=== PATIENT | female | born 1945 | race Caucasian/White ===

== ENCOUNTER 2025-04-04 10:12 | Outpatient (REF) | payer OTHER, SELFPAY ==
--- NOTE | ~2025-04-04 | XR_ITS ---
EXAMINATION: XR LUMBOSACRAL SPINE CLINICAL INFORMATION: M48.062 - Spinal stenosis, lumbar region with neurogenic claudication COMPARISON: None available. TECHNIQUE: 4 views of the lumbar spine, inclusive of flexion and extension views, were obtained. FINDINGS: Minimal levoconvex scoliosis centered at L4. Normal lumbar lordosis. No fracture, compression deformity, or suspicious bone lesion. Severe disc degeneration evident at L2-S1 with disc vacuum phenomenon and mild sclerosis of the endplates. Multilevel hypertrophic degenerative facet changes spanning L2-S1. There is a 3 mm degenerative retrolisthesis of L2 on L3, which remained static in flexion and extension. There is no evidence of instability. Soft tissues demonstrate aortic and vascular calcifications. XR/XR lumbar spine 4V min IMPRESSION: 1. Moderate to advanced lumbar spondylosis spanning L2-S1. No acute bony abnormalities. 2. No evidence of instability. Electronically signed by: Deandre Schneider MD 04/04/2025 03:08 PM EDT
== END 2025-04-04 10:13 | disposition home or self-care (01) ==
LOC: HO.HOSX 10:12
PROVIDERS: PCP Internal Medicine; Referring Provider Physical Medicine & Rehabilitation; Visit Provider Neurological Surgery
DX: M48.062 Spinal stenosis, lumbar region with neurogenic claudication (principal); M79.652 Pain in left thigh
CPT/HCPCS: 72110

== ENCOUNTER 2025-04-04 13:55 | Outpatient (AMB) | payer OTHER, SELFPAY ==
--- OUTSIDE RECORDS SUMMARY | 2025-04-04 10:16 | XMS_ITS | Clinical Summary ---
Author Organization [address] Address [address] [place] [address] Phone Care Team Providers Care Patch Sander Name Role Phone Dragan Daniels MD Primary Care Provider Allergies No known active allergies Medications multivitamin (MULTIPLE VITAMINS ORAL) Take 1 Tab by mouth daily. Active azelaic acid (FINACEA) 15 % gel 3 Active calcium carbonate-vitamin D 500 mg-5 mcg (200 unit) per tablet 1 bid Active estradioL (CLIMARA) 0.025 mg/24 hr APPLY 1 PATCH TOPICALLY TO THE SKIN WEEKLY 2 Active levothyroxine (Synthroid) 100 mcg tablet Take 1 tablet (100 mcg total) by mouth 1 (one) time each day. 0 Active metroNIDAZOLE (MetroCream) 0.75 % cream apply as directed daily 8 Active losartan (COZAAR) 50 mg tablet Take 1 tablet (50 mg total) by mouth 1 (one) time each day. 90 each 1 5 Active metoprolol succinate (TOPROL-XL) 50 mg 24 hr tablet Take 1 tablet (50 mg total) by mouth 1 (one) time each day. 90 tablet 1 5 Active ondansetron ODT (ZOFRAN-ODT) 4 mg disintegrating tablet Let 1 tablet dissolve under the tongue three times daily as needed for nausea or vomiting. 10 tablet 5 025 Active Problems Problem Noted Date Diagnosed Date Nonischemic cardiomyopathy ([facility] V24, [facility] V28) 12/09/2024 Overview (12/09/2024): - In retrospect, may have been an unusual case of Lyme carditis possibly presenting as a left bundle branch block as both her left bundle branch block and her ejection fraction have completely resolved posttreatment -Was initially incidentally diagnosed with a left bundle branch block in March of 2016 -Had a pharmacologic nuclear stress test on 04/05/2017 showing a small, mild basal to mid inferior septal defect which may have been artifactual from the left bundle branch block with higher heart rates -Echocardiogram at the time showed an EF of 50% with mild diastolic dysfunction, normal RV size and systolic function without significant valve disease -was later hospitalized [facility] and transferred to [facility] in April 2017 for shortness of breath and 10 pound weight gain with worsening orthopnea and cough-found to have elevated BNP and pleural effusions on workup-diagnosed with an acute exacerbation of heart failure; echocardiogram done in the hospital showed an EF of 40-45% with global hypokinesis with paradoxic septal motion consistent with left bundle branch block -Cardiac cath in April 2017 showed clean coronaries-patient was started on Lasix, Toprol, losartan in medical management -Cardiac MRI given a history of remote Lyme disease performed on 06/28/2017 and showed low normal LV systolic function with paradoxic septal motion with an EF of 53%, normal RV size and systolic function with an RV ejection fraction of 57%, no significant valve disease, no delayed gadolinium enhancement to suggest infarct, filtration, or myocarditis, moderate right atrial enlargement -Most recent echocardiogram from February 2022 showed normal biventricular size and systolic function, normal left ventricular regional wall motion with reportedly low normal ejection fraction of 50 to 55%-though unchanged from prior echo in 2019 where EF was called 60 to 65%-likely into reader variability, no hemodynamically significant valve disease, normal pulmonary artery systolic pressure Trigger middle finger of left hand 09/30/2024 Paroxysmal atrial tachycardia ([facility] V24) 12/2023 Overview (07/13/2024): -Noted on EKG from 05/11/2017 which is documented as atrial fibrillation by the computer but upon closer inspection it looks like sinus rhythm with a run of SVT-likely A. tach -Repeat Holter monitor for ongoing palpitations on 03/16/2020 showed sinus rhythm and sinus bradycardia with average heart rate 65 bpm, frequent APCs, rare atrial pairs, atrial bigeminy with atrial runs up to 8 beats, rare PVCs, overall supraventricular ectopic burden of only 2.6% though, palpitation symptoms correlated to sinus rhythm with APCs Left bundle branch block 05/10/2022 Overview (07/13/2024): Left bundle branch block Metatarsal fracture 11/09/2020 Lumbar radiculopathy 01/01/2020 Lyme disease, unspecified 05/29/2017 Pure hypercholesterolemia 04/18/2017 Overview (07/13/2024): Last Assessment & Plan: Has had longstanding mild hyperlipidemia but had clean coronaries on cath in 2016. I have not really pushed statins in her. That said, with her next set of labs I have also ordered an APO B100 as this may be more predictive clinically of cardiovascular events. If elevated, I think we can make a bigger case to consider statin initiation. I also encouraged her to observe a Mediterranean diet and increase fiber intake. Migraine headache 08/12/2014 Overview (07/13/2024): Hx of chronic headaches since age 16. Pulmonary nodules/lesions, multiple 12/05/2013 Hypertension 11/26/2012 Overview (07/13/2024): Last Assessment & Plan: Generally well-controlled at home on current meds, improved on my recheck today. Continue current medications. Osteoarthritis of finger 08/18/2008 IBS (irritable bowel syndrome) 10/30/2007 Overview (07/13/2024): IBS-like episodic diarrhea, onset 2001. Chronic episodic diarrhea. EGD and duodenal biopsies normal 09/04/07. Colonoscopy normal, minimal microscopic evidence of eosinophils 09/04/07. Negative EGD, CN, biopsies 2013. Acne rosacea 08/03/2005 Hypothyroidism 08/03/2005 Overview (07/13/2024): Following with [facility] Resolved Problems Problem Noted Date Diagnosed Date Resolved Date Osteoporosis 05/10/2022 08/19/2024 Overview (07/13/2024): DEXA (07/04/2011); improvement to osteopenia since then Encounters Date Type Department Care Team Description 03/10/2025 11:00 AM EDT Office Visit Adult Medicine [address] [phone] Dragan Daniels MD Viral gastroenteritis (Primary Dx); Spinal stenosis of lumbar region, unspecified whether neurogenic claudication present 03/07/2025 4:45 PM EDT Office Visit Walk-In Clinic - [address] [phone] Edd Krause NP Diarrhea (Primary Dx) 03/06/2025 4:58 PM EDT - 03/06/2025 11:59 PM EDT Hospital Encounter Radiology Department - [address] [phone] Radiculopathy, lumbar region; Spinal stenosis, lumbar region with neurogenic claudication Discharge Disposition: Home or Self Care 03/06/2025 Telephone Adult [address] [phone] Dragan Daniels MD Hospitalization/ER 03/05/2025 9:39 PM EDT - 03/06/2025 12:[address] [facility] Emergency [address] [place] [id number] Dario Jernigan MD Viral gastroenteritis (Primary Dx) Discharge Disposition: Home or Self Care 02/11/2025 2:00 PM EDT Office Visit Adult Medicine [address] [phone] Dragan Daniels MD Fecal smearing (Primary Dx); Abdominal cramping 02/10/2025 Telephone Adult Medicine [facility] [address] [place] [address] Dragan Daniels MD GI Problem 02/05/2025 Telephone Adult Medicine [facility] [address] [place] [address] Dragan Daniels MD Referral (Ophthalmology Insurance Referral) from Last 3 Months Immunizations Name Administration Dates Next Due Influenza trivalent, 0.5mL ( Fluad) 65yo and older 05/29/2023,05/23/2022,05/05/2021,05/11,05/13/2018,05/20/2016 Influenza trivalent, 0.5mL, preservative free (Fluarix; FluLaval; Fluzone) ages 6mo and older (Afluria) 3 years and older 06/19/2017,08/10/2011,07/17/2008 Influenza trivalent, with pr eservative (Fluzone; Afluria) 6mo and older 06/10/2015,06/05/2014,06/21/2013 Moderna SARS-CoV-2 COVID-19, mRNA, LNP-S, preservative free 10/21/2020,09/23/2020 Pneumococcal conjugate 13 va lent (Prevnar 13, PCV13) 2mo and older 04/22/2016 Pneumococcal polysaccharide 23 valent (Pneumovax 23) 2yo and older 02/24/2011 Td Tetanus diptheria (Tdvax) 7yo and older 12/04/2018,02/16/2009 Tdap Tetanus diptheria acell ular pertussis (Boostrix; Adacel) 7yo and older 01/07/2024 Zoster Live 07/15/2019,06/16/2011 Zoster recombinant (Shingrix ) 19yo and older 07/17/2020,07/17/2019,04/26/2019 Surgical History Surgery Date Site/Laterality Comments OTHER SURGICAL HISTORY 1972 PROCEDURE: HISTORICAL TOTAL HYSTERECTOMY W/O BSO; COMMENT: Age 26 COLONOSCOPY 01/2005 PROCEDURE: HISTORICAL COLONOSCOPY; COMMENT: Dr Galo COLONOSCOPY 08/31/19 PROCEDURE: HISTORICAL COLONOSCOPY; COMMENT: colonic bx: Minimal eosinophilia, nonspecific COLONOSCOPY 1999 PROCEDURE: HISTORICAL COLONOSCOPY; COMMENT: Dr. Galo; colon polyp removed. COLONOSCOPY 2012 PROCEDURE: HISTORICAL COLONOSCOPY; COMMENT: normal ESOPHAGOGASTRODUODENOSCOPY 2012 PROCEDURE: [place] ESOPHAGOGASTRODUODENOSCOPY TRANSORAL DIAGNOSTIC; COMMENT: normal HAND SURGERY 2011 PROCEDURE: HISTORICAL HAND SURGERY; COMMENT: Dr. Familia riley hand COLONOSCOPY 06/19/20 14 PROCEDURE: HISTORICAL COLONOSCOPY; COMMENT: Visually normal; random bx: normal (on budesonide rx) TONSILLECTOMY 1947 PROCEDURE: HISTORICAL TONSILLECTOMY MULTIPLE TOOTH EXTRACTIONS PROCEDURE: HISTORICAL DENTAL EXTRACTION UPPER GASTROINTESTINAL ENDOSCOPY 08/05/20 14 PROCEDURE: [place] UPPER GI ENDOSCOPY PERFORMED; COMMENT: Visually normal; duodenal bx: duodenal bx normal. UPPER GASTROINTESTINAL ENDOSCOPY 08/31/19 PROCEDURE: OH UPPER GI ENDOSCOPY PERFORMED; COMMENT: duodenal bx: Normal BREAST BIOPSY 2005 Left PROCEDURE: BX BREAST; PERC NEEDLE CORE W/IMAG GUID; COMMENT: b9 + cyst asp FINE NEEDLE ASPIRATION 01/01/20 Right PROCEDURE: FINE NDLE ASPRTN W/IMAGING GUIDANCE; COMMENT: neg COLONOSCOPY 05/16/20 PROCEDURE: HISTORICAL COLONOSCOPY Medical History Medical History Date Comments Idiopathic osteoporosis 08/03/2005 DX:Idiop athic osteoporosis Rosacea 08/03/2005 DX:Rosacea Unspecified hypothyroidism 08/03/2005 DX:Un specified hypothyroidism Lung nodules 12/08/2011 DX:Lung nodules Migraine headache 08/12/2014 DX:Migraine he adache; COMMENT: Hx of chronic headaches since age 16. IBS (irritable bowel syndrome) 10/30/2007 D X:IBS (irritable bowel syndrome); COMMENT: IBS-like episodic diarrhea, onset 2001. Chronic episodic diarrhea. EGD and duodenal biopsies normal 09/04/07. Colonoscopy normal, minimal microscopic evidence of eosinophils 09/04/07. Probable medication side effect. Negative EGD, CN, biopsies 2013. Hypertension 11/26/2012 DX:Hypertension Family History Medical History Relation Name Comments Prostate cancer Brother alive Arthritis Father COPD Leukemia Father Leukemia, decre ased Other cancer Mother liver cancer, d eceased Hemochromatosis Other Arthritis Sister hands Breast cancer Neg Hx Colon cancer Neg Hx Ovarian cancer Neg Hx Relation Name Status Comments Brother Father Mother Other Sister Social History Tobacco Use Types Packs/Day Years Used Date Smoking Tobacco: Former Cigarettes Q uit: 08/28/1979 Smokeless Tobacco: Never Tobacco Cessation:Counseling Given: Not Answered Alcohol Use Standard Drinks/Week Comments Yes 0 (1 standard drink = 0.6 oz pur e alcohol) Housing Instability Answer Date Recorde d Are you worried that in the next 2 months you may not have stable housing? No 08/19/2024 Food Access & Nutrition Answer Date Rec orded Do you have access to a vari ety of food including fruits and vegetables? Yes 08/19/2024 Health Literacy Answer Date Recorded How often do you need to hav e someone help you when you read instructions, pamphlets, or other written material from your doctor or pharmacy? Never 08/19/2024 Caregiver: How often do you need to have someone help you when you read instructions, pamphlets, or other written material from your doctor or pharmacy? Not on file 08/19/2024 Financial Risk Answer Date Recorded How hard is it for you to pa y for the very basics like food, housing, medical care, and air conditioning / heating? Not very hard 08/19/2024 Transportation Answer Date Recorded Has the lack of transportati on kept you from meetings, work, or from getting things needed for daily living? No Has the lack of transportati on kept you from medical appointments or from getting medications? No 08/19/2024 Social Isolation Answer Date Recorded How often do you feel lonely or isolated from th ose around you? Never 08/19/2024 Food Risk Answer Date Recorded Within the past 12 months we worried whether our food would run out before we got money to buy more. Never true 08/19/2024 Within the past 12 months th e food we bought just didn't last and we didn't have money to get more. Never true 08/19/2024 Dependent Care Answer Date Recorded Do you need help finding or paying for care for your loved ones. For example, children's program coordinator or elderly care for an older adult? No 08/19/2024 Education Answer Date Recorded Do you think completing more education or training, like finishing a GED, going to college, or learning a trade, would be helpful for you? No 08/19/2024 Employment and Income Answer Date Recor ded During the last four weeks, have you been actively looking for work? No 08/19/2024 Living Situation Answer Date Recorded What is your living situation? 1 10/20/2023 Comments No Sex and Gender Information Value Date Recorded Sex Assigned at Not on file Legal Sex Female 11:20 PM EST Gender Identity Not on file Sexual Orientation Not on file Obstetrics History Para Term AB IAB SAB Ectopic Multiple Livin g Live Births 3 3 3 3 Date Outcome GA Total Labor Labor/2nd/3rd Weight Sex Type Anes PTL [place] A1 A5 Name Clin Term Term Term Last Filed Vital Signs Vital Sign Reading Time Taken Comments Blood Pressure 122/53 03/10/2025 10:46 AM EDT Pulse 65 03/10/2025 10:44 AM EDT Temperature 36.2 C (97.2 F) 03/10/2025 10:44 AM EDT Respiratory Rate 16 03/10/2025 10:44 AM EDT Oxygen Saturation 98% 03/10/2025 10:44 AM EDT Inhaled Oxygen Concentration - - Weight 59 kg (130 lb) 03/10/2025 10:44 AM EDT Height 162.6 cm (5' 4 ) 03/10/2025 10:44 AM EDT Body Mass Index 22.31 03/10/2025 10:44 AM EDT Plan of Treatment Upcoming Encounters Date Type Department Care Team (Late st Contact Info) Description 05/21/2025 9:30 AM EDT Office Visit Adult Medicine [facility] [address] [place] [address] Dragan Daniels MD [address] [place] [address] Health Maintenance Due Date Last Done Comments COVID-19 Vaccine ( season) 2024 06/11/2022, 11/30/2021, 06/21/2021, Additional history exists Depression Screening 08/28/2024 08/19/2024 Influenza Vaccine (#1) 2025 , 05/29/2023, 05/23/2022, Additional history exists Falls Risk Assessment 08/19/2025 08/19/2024, 024 Social Influencers of Health Screening 08/19/2025 08/19/2024 Hypertension/CHF/CAD Annual BMP Blood Test 03/05/2026 03/05/2025, 08/27/2024, 01/19/2024, Additional history exists Cholesterol Screening (Lipid Panel) 08/27/2029 08/27/2024, 06/29/2023 DTaP,Tdap,and Td Vaccines (4 - Td or Tdap) 01/06/2034 01/07/2024, 12/04/2018, 02/16/2009 Osteoporosis Screening (Bone Density Screening) 09/03/2034 09/03/2024, 12/06/2021, 08/15/2019, Additional history exists Hepatitis C Screening Completed 02/27/2013 Pneumococcal Vaccine: 50+ Years Completed 04/22/2016, 02/24/2011 Zoster Vaccines Completed 07/17/2020, 06/29, 07/15/2019, Additional history exists RSV Immunization Adult Patients Completed 08/16/2023 HIB Vaccines Aged Out No longer eligi ble based on patient's age to complete this topic HPV Vaccines Aged Out No longer eligi ble based on patient's age to complete this topic Hepatitis A Vaccines Aged Out No long er eligible based on patient's age to complete this topic Hepatitis B Vaccines Aged Out No long er eligible based on patient's age to complete this topic IPV Vaccines Aged Out No longer eligi ble based on patient's age to complete this topic MMR Vaccines Aged Out No longer eligi ble based on patient's age to complete this topic Meningococcal ACWY Vaccine Aged Out N o longer eligible based on patient's age to complete this topic Meningococcal B Vaccine Aged Out No l onger eligible based on patient's age to complete this topic RSV Immunization Patients Under 20 months Aged Out No longer eligible based on patient's age to complete this topic Varicella Vaccines Aged Out No longer eligible based on patient's age to complete this topic Procedures Procedure Name Priority Date/Time Associated Diagnosis Comments GASTROINTESTINAL PATHOGENS BY PCR Routine 03/08/2025 9:03 AM EDT Diarrhea MR LUMBAR SPINE WO CONTRAST Routine 03/06/2025 5:48 PM EDT Radiculopathy, lumbar region Spinal stenosis, lumbar region with neurogenic claudication [id number], RSV, FLU A AND B QUALITATIVE RT-PCR, INTERNAL LAB STAT 03/05/2025 10:48 PM EDT CBC WITH AUTO DIFFERENTIAL STAT 03/05/2025 6:36 PM EDT COMPREHENSIVE METABOLIC PANEL STAT 03/05/2025 6:36 PM EDT CBC AND DIFFERENTIAL STAT 03/05/2025 6:36 PM EDT BD BONE DENSITY DXA AXIAL SKELETON Routine 09/03/2024 1:45 PM EST Encounter for osteoporosis screening in asymptomatic postmenopausal patient LIPID PANEL WITH REFLEX TO DIRECT LDL Routine 08/27/2024 7:48 AM EST Pure hypercholesterolemia HEPATITIS C SCREENING Routine 02/27/2013 from Last 3 Months or Most Recently Relevant to Health Maintenance Results * (ABNORMAL) Gastrointestinal pathogens molecular study (03/08/2025 9:03 AM EDT) Campylobacter Detection by PCR Not Detected Not Detected LAB MICROBIOLOGY METHOD 5 8:10 PM EDT [facility] Plesiomonas shigelloides Detection by PCR Not Detected Not Detected LAB MICROBIOLOGY METHOD 5 8:10 PM EDT [facility] Salmonella Detection by PCR Not Detected Not Detected LAB MICROBIOLOGY METHOD 5 8:10 PM EDT [facility] Vibrio Detection by PCR Not Detected Not Detected LAB MICROBIOLOGY METHOD 5 8:10 PM EDT [facility] Vibrio cholerae Detection by PCR Not Detected Not Detected LAB MICROBIOLOGY METHOD 5 8:10 PM EDT [facility] Yersinia enterocolitica Detection by PCR Not Detected Not Detected LAB MICROBIOLOGY METHOD 5 8:10 PM EDT [facility] Enteroaggregative E coli EAEC Detection by PCR Not Detected Not Detected LAB MICROBIOLOGY METHOD 5 8:10 PM EDT [facility] Enteropathogenic E coli EPEC Detection Not Detected Not Detected LAB MICROBIOLOGY METHOD 5 8:10 PM EDT [facility] Enterotoxigenic E coli ETEC LTST Detection Not Detected Not Detected LAB MICROBIOLOGY METHOD 5 8:10 PM EDT [facility] Shiga-like toxin producing E coli STEC STX1 STX2 Det Not Detected Not Detected LAB MICROBIOLOGY METHOD 5 8:10 PM EDT [facility] Shigella Enteroinvasive E coli EIEC Detection Not Detected Not Detected LAB MICROBIOLOGY METHOD 5 8:10 PM EDT [facility] Cryptosporidium Detection by PCR Not Detected Not Detected LAB MICROBIOLOGY METHOD 5 8:10 PM EDT [facility] Cyclospora cayetanensis Detection by PCR Not Detected Not Detected LAB MICROBIOLOGY METHOD 5 8:10 PM EDT [facility] Entamoeba histolytica Detection by PCR Not Detected Not Detected LAB MICROBIOLOGY METHOD 5 8:10 PM EDT [facility] Giardia lamblia Detection by PCR Not Detected Not Detected LAB MICROBIOLOGY METHOD 5 8:10 PM EDT [facility] Adenovirus F 40 41 Detection by PCR Not Detected Not Detected LAB MICROBIOLOGY METHOD 5 8:10 PM EDT [facility] Astrovirus Detection by PCR Detected(A ) Not Detected LAB MICROBIOLOGY METHOD 5 8:10 PM EDT [facility] Norovirus GI GII Detection by PCR Not Detected LAB MICROBIOLOGY METHOD 5 8:10 PM EDT [facility] Sapovirus Detection by PCR Not Detected Not Detected LAB MICROBIOLOGY METHOD 5 8:10 PM EDT [facility] Rotavirus A Detection by PCR Not Detected Not Detected LAB MICROBIOLOGY METHOD 5 8:10 PM EDT [facility] Stool Rectum structure / Unknown Non-blood Collection / Unknown 03/08/2025 9:03 AM EDT 03/08/2025 9:03 AM EDT Narrative [facility] - 03/08/2025 8:10 PM EDT PCR testing is much more sensitive than traditional techniques and allows for the detection of low numbers of stool pathogens. The clinical correlation of PCR results with the need for treatment and clinical outcomes has not been established. Therefore the results of PCR testing for stool pathogens must be taken into clinical context when making treatment decisions. This is a diagnostic test only, repeat testing for cure is not advised. You may consider infectious disease consult for additional guidance. Testing Performed by [facility] Edd Krause NP LAB MICROBIOLOGY - GENERAL OR DERABLES Final Result [facility] [address] [place] [address], * MR Lumbar Spine wo Contrast (03/06/2025 5:48 PM EDT) Anatomical Region Laterality Modality L-spine, Spine Magnetic Resonan ce 03/07/2025 6:21 PM EDT Impressions 03/07/2025 6:40 PM EDT Impression: 1. Severe multilevel degenerative changes worse at L2-L3 with severe bilateral neuroforaminal stenosis and severe spinal canal stenosis. The cauda equina fibers proximal to this region appears scattered. Continue follow-up with spine -------- FINAL REPORT -------- Dictated By: Moises Kapoor Dictated Date: 03/07/2025 18:21 ET Assigned Physician: Moises Kapoor Reviewed and Electronically Signed By: Moisse Kapoor Signed Date: 03/07/2025 18:40 ET Workstation ID: [id number] Transcribed By: Self Edit Transcribed Date: 03/07/2025 18:21 ET Narrative 03/07/2025 6:40 PM EDT MRI LUMBAR SPINE Clinical Statement: lower back pain Comparison: Lumbar spine MRI from 06/29/2013 Technique: Multiplanar, multisequence MRI images of the lumbar spine were obtained without intravenous contrast. Findings: There is normal lumbar lordosis. There is preservation of the vertebral body height. There is grade 1 anterolisthesis measuring 4 mm of L2 on L3. There is sacralization of L5. Markedly heterogeneous vertebral body marrow signal consistent with degenerative changes. Decreased disc height at L2-L3, L3-L4, L4-L5 and L5-S1 with disc desiccation at multiple levels. Cord signal is within normal limits. The conus medullaris terminates at L1. T12-L1: Broad-based disc bulge, facet hypertrophy without neuroforaminal spinal canal stenosis L1-L2: Broad-based disc bulge and central disc protrusion, facet arthropathy and hypertrophy, ligamentum flavum hypertrophy with moderate bilateral neuroforaminal stenosis and moderate spinal canal stenosis L2-L3: At the L2 level, the cauda equina fibers appear to be scattered. Broad- based disc bulge, facet arthropathy and hypertrophy, ligamentum flavum hypertrophy with severe bilateral neuroforaminal stenosis and severe spinal canal stenosis L3-L4: Broad-based disc bulge and central disc protrusion, ligamentum flavum hypertrophy, facet arthropathy with severe bilateral neuroforaminal stenosis and moderate to severe spinal canal stenosis. There is marked compression of the nerve roots on the right due to degenerative changes. L4-L5: Broad-based disc bulge and central disc protrusion, facet arthropathy and hypertrophy, ligamentum flavum hypertrophy with severe left and moderate right neuroforaminal stenosis and moderate spinal canal stenosis. Small posterior annular tear is present. L5-S1: Broad-based disc bulge and central disc protrusion, facet arthropathy and hypertrophy with severe right and moderate left neuroforaminal stenosis and mild spinal canal stenosisI Procedure Note Moises Kapoor MD - 03/07/2025 MRI LUMBAR SPINE Clinical Statement: lower back pain Comparison: Lumbar spine MRI from 06/29/2013 Technique: Multiplanar, multisequence MRI images of the lumbar spine wereobtained without intravenous contrast. Findings: There is normal lumbar lordosis. There is preservation of thevertebral body height. There is grade 1 anterolisthesis measuring 4 mm ofL2 on L3. There is sacralization of L5. Markedly heterogeneous vertebralbody marrow signal consistent with degenerative changes. Decreased discheight at L2-L3, L3-L4, L4-L5 and L5-S1 with disc desiccation at multiplelevels. Cord signal is within normal limits. The conus medullaristerminates at L1. T12-L1: Broad-based disc bulge, facet hypertrophy without neuroforaminalspinal canal stenosis L1-L2: Broad-based disc bulge and central disc protrusion, facetarthropathy and hypertrophy, ligamentum flavum hypertrophy with moderatebilateral neuroforaminal stenosis and moderate spinal canal stenosis L2-L3: At the L2 level, the cauda equina fibers appear to be scattered.Broad- based disc bulge, facet arthropathy and hypertrophy, ligamentumflavum hypertrophy with severe bilateral neuroforaminal stenosis andsevere spinal canal stenosis L3-L4: Broad-based disc bulge and central disc protrusion, ligamentumflavum hypertrophy, facet arthropathy with severe bilateral neuroforaminalstenosis and moderate to severe spinal canal stenosis. There is markedcompression of the nerve roots on the right due to degenerative changes. L4-L5: Broad-based disc bulge and central disc protrusion, facetarthropathy and hypertrophy, ligamentum flavum hypertrophy with severeleft and moderate right neuroforaminal stenosis and moderate spinal canalstenosis. Small posterior annular tear is present. L5-S1: Broad-based disc bulge and central disc protrusion, facetarthropathy and hypertrophy with severe right and moderate leftneuroforaminal stenosis and mild spinal canal stenosisI IMPRESSION: Impression: 1. Severe multilevel degenerative changes worse at L2-L3 with severebilateral neuroforaminal stenosis and severe spinal canal stenosis. Thecauda equina fibers proximal to this region appears scattered. Continuefollow-up with spine -------- FINAL REPORT -------- Dictated By: Moises Kapoor Dictated Date: 03/07/2025 18:21 ET Assigned Physician: Moises Kapoor Reviewed and Electronically Signed By: Moises Kapoor Signed Date: 03/07/2025 18:40 ET Workstation ID: [id number] Transcribed By: Self Edit Transcribed Date: 03/07/2025 18:21 ET Haim Ulloa DO IMG MRI PROCEDURES Final Result * [id number], RSV, Influenza A and B qualitative RT-PCR (03/05/2025 10:48 PM EDT) Influenza A PCR Not Detected Not Detected LAB MICROBIOLOGY METHOD 03/05/2025 11:42 PM EDT [facility] Influenza B PCR Not Detected Not Detected LAB MICROBIOLOGY METHOD 03/05/2025 11:42 PM EDT [facility] RSV PCR Not Detected Not Detected LAB MICROBIOLOGY METHOD 03/05/2025 11:42 PM EDT [facility] SARS COV-2 Not Detected Not Detected LAB MICROBIOLOGY METHOD 03/05/2025 11:42 PM EDT [facility] Swab Both anterior nares / Unknown Non-blood Collection / Unknown 03/05/2025 10:48 PM EDT 03/05/2025 11:01 PM EDT [facility] - 03/05/2025 11:42 PM EDT Disclaimer: Testing was performed using the [employer] GeneXpert Xpress SARS-CoV-2 _Flu_RSV PLUS PCR assay. The manner in which this information is used to guide patient care is the responsibility of the healthcare provider. Results should be correlated with the clinical history, epidemiological data, and other data available to the clinician evaluating the patient. Negative results do not preclude infection. This test has been authorized by the FDA under an Emergency Use Authorization (EUA). This test is only authorized for the duration of time the declaration that circumstances exist justifying the authorization of the emergency use of in vitro diagnostic tests for detection of SARS-CoV-2 virus and/or diagnosis of COVID-19 infection under section 564 (b) (1) of the Act, 21 U.S.C 360bbb-3 (b) (1), unless the authorization is terminated or revoked sooner. Reference Range: Not Detected Fact sheet for Healthcare providers can be found at https://www.fda.gov/media/743839/download. Fact sheet for Healthcare patients can be found at https://www.fda.gov/media/024774/download. Kellee CARSON LAB MICROBIOLOGY - GENERAL ORD ERABLES Final Result [facility] [address] [place] [address], [place] [phone] * (ABNORMAL) CBC auto differential (03/05/2025 6:36 PM EDT) [facility] Signature WBC 5.9 4.8 - 10.8 K/mcL LAB HEMETOLOGY METHOD 03/05/2025 7:02 PM EDT [facility] RBC 4.70 3.80 - 4.80 M/mcL LAB HEMETOLOGY METHOD 03/05/2025 7:02 PM EDT [facility] Hemoglobin 14.6 11.5 - 16.0 g/dL LAB HEMETOLOGY METHOD 03/05/2025 7:02 PM EDT [facility] Hematocrit 43.8 35.0 - 47.0 % LAB HEMETOLOGY METHOD 03/05/2025 7:02 PM EDT [facility] MCV 93.4 79.0 - 98.0 FL LAB HEMETOLOGY METHOD 03/05/2025 7:02 PM EDT [facility] MCH 31.1 27.0 - 32.0 pcg LAB HEMETOLOGY METHOD 03/05/2025 7:02 PM EDT [facility] MCHC 33.3 32.0 - 37.0 g/dL LAB HEMETOLOGY METHOD 03/05/2025 7:02 PM EDT [facility] RDW 13.2 11.0 - 15.0 % LAB HEMETOLOGY METHOD 03/05/2025 7:02 PM EDT [facility] Platelets 180 130 - 400 K/mcL [facility] MPV 10.3 7.0 - 11.0 FL LAB HEMETOLOGY METHOD 03/05/2025 7:02 PM EDT [facility] NRBC 0.0 <1.0 % LAB HEMETOLOGY METHOD 03/05/2025 7:02 PM [facility] NRBC Absolute 0.00 <0.10 K/mcL LAB HEMETOLOGY METHOD 03/05/2025 7:02 PM [facility] Neutrophils Relative 84.8 % LAB HEMETOLOGY METHOD 03/05/2025 7:02 PM [facility] Lymphocytes Relative 6.8 % LAB HEMETOLOGY METHOD 03/05/2025 7:02 PM [facility] Monocytes Relative 7.7 % LAB HEMETOLOGY METHOD 03/05/2025 7:02 PM [facility] Eosinophils Relative 0.0 % LAB HEMETOLOGY METHOD 03/05/2025 7:02 PM [facility] Basophils Relative 0.5 % LAB HEMETOLOGY METHOD 03/05/2025 7:02 PM [facility] Immature Granulocytes Relative 0.2 % LAB HEMETOLOGY METHOD 03/05/2025 7:02 [facility] Neutrophils Absolute 4.97 1.50 - 7.00 K/mcL LAB HEMETOLOGY METHOD 03/05/2025 7:02 [facility] Lymphocytes Absolute 0.40(L) 1.00 - 5.00 K/mcL LAB HEMETOLOGY METHOD 03/05/2025 7:02 PM [facility] Monocytes Absolute 0.45 0.20 - 1.00 K/mcL LAB HEMETOLOGY METHOD 03/05/2025 7:02 PM [facility] Eosinophils Absolute 0.00 0.00 - 0.50 K/mcL LAB HEMETOLOGY METHOD 03/05/2025 7:02 PM [facility] Basophils Absolute 0.03 0.00 - 0.20 K/mcL LAB HEMETOLOGY METHOD 03/05/2025 7:02 PM [facility] Immature Granulocytes Absolute 0.01 0.00 - 0.03 K/mcL LAB HEMETOLOGY METHOD 03/05/2025 7:02 PM EDT [facility] Blood Venous blood specimen / Unknown Venipuncture / Unknown 03/05/2025 6:36 PM EDT 03/05/2025 6:56 PM EDT Js Everton Mae MD LAB BLOOD ORDERABLES Final Resu lt [facility] [address] [place] [address], * (ABNORMAL) Comprehensive metabolic panel (03/05/2025 6:36 PM EDT) Sodium 137 133 - 145 mmol/L LAB CHEMISTRY METHOD 03/05/2025 7:34 PM [facility] Potassium 4.5 3.5 - 5.5 mmol/L LAB CHEMISTRY METHOD 03/05/2025 7:34 PM [facility] Chloride 103 96 - 110 mmol/L LAB CHEMISTRY METHOD 03/05/2025 7:34 PM [facility] CO2 26 21 - 32 mmol/L LAB CHEMISTRY METHOD 03/05/2025 7:34 PM [facility] Anion Gap 8 3 - 11 LAB CHEMISTRY METHOD 03/05/2025 7:34 PM [facility] Glucose 116(H) 70 - 100 mg/dL LAB CHEMISTRY METHOD 03/05/2025 7:34 PM [facility] BUN 20 5 - 25 mg/dL LAB CHEMISTRY METHOD 03/05/2025 7:34 PM [facility] Creatinine 0.95 0.50 - 1.10 mg/dL LAB CHEMISTRY METHOD 03/05/2025 7:34 PM [facility] eGFR 61 >=60 mL/min/1. 73m2 LAB CHEMISTRY METHOD 03/05/2025 7:34 PM T [facility] Comment:Calculation based on the Chronic Kidney Disease Epidemiology Collaboration (CKD-EPI) equation refit without adjustment for race. BUN/Creatinine Ratio 21.1 LAB CHEMISTRY METHOD 03/05/2025 7:34 PM [facility] Calcium 9.9 8.5 - 10.5 mg/dL LAB CHEMISTRY METHOD 03/05/2025 7:34 PM [facility] AST (SGOT) 26 10 - 42 unit/L LAB CHEMISTRY METHOD 03/05/2025 7:34 PM [facility] ALT (SGPT) 22 10 - 60 unit/L LAB CHEMISTRY METHOD 03/05/2025 7:34 PM [facility] Alkaline Phosphatase 62 42 - 121 unit/L LAB CHEMISTRY METHOD 03/05/2025 7:34 PM [facility] Total Protein 6.9 6.0 - 8.0 g/dL LAB CHEMISTRY METHOD 03/05/2025 7:34 PM [facility] Albumin 3.9 3.2 - 5.0 g/dL LAB CHEMISTRY METHOD 03/05/2025 7:34 PM [facility] Total Bilirubin 0.7 0.0 - 1.4 mg/dL LAB CHEMISTRY METHOD 03/05/2025 7:34 PM [facility] Blood Venous blood specimen / Unknown Venipuncture / Unknown 03/05/2025 6:36 PM EDT 03/05/2025 6:56 PM EDT us Js Mae MD LAB BLOOD ORDERABLES Final Resu lt [facility] [address] [place] [address], * BD Bone Density DXA Axial Skeleton (09/03/2024 1:45 PM EST) Anatomical Region Laterality Modality Wrist, Hip, L-spine Bone Densito metry 09/03/2024 8:05 PM EST Impressions 09/03/2024 8:07 PM EST Osteopenia Reference Information: The T-score is the number of standard deviations above or below the standard which is normal for young adults at their peak bone mineral density. The World Health Organization (WHO) interprets the T-scores as follows: At or above -1 SD Normal bone density Between -1 and -2.5 SD Osteopenia At or below -2.5 SD Osteoporosis -------- FINAL REPORT -------- Dictated By: Artur Torres Dictated Date: 09/03/2024 20:05 ET Assigned Physician: Artur Torres Reviewed and Electronically Signed By: Artur Torres Signed Date: 09/03/2024 20:07 ET Workstation ID: [id number] Transcribed By: Self Edit Transcribed Date: 09/03/2024 20:05 ET Narrative 09/03/2024 8:07 PM EST STUDY: DUAL ENERGY X-RAY ABSORPTIOMETRY / DXA REASON FOR EXAM: Female, 78 years old osteopenia and screen for osteoporosis TECHNIQUE: Bone Mineral Density (BMD) measurements of the lumbar spine and left hip were obtained using [employer] Discovery W (S/N [id number]). COMPARISON: December 06, 2021 FINDINGS: L1-L2 BMD: 1.052 g/cm2 L1-L2 T score: 0.7. This corresponds to Normal bone density. This represents a -0.6 % decrease in bone density compared with prior exam from December 06, 2021. Left femoral neck BMD: 0.653 g/cm2 Left femoral neck T score: -1.8. This corresponds to osteopenia. Left total hip BMD: 0.743 g/cm2 Left total hip T score: -1.6. This corresponds to osteopenia. This represents a 3.9* % increase in bone density compared with prior exam from December 06, 2021. * - Indicates a statistically significant change. FRAX score: 10 year risk of major osteoporotic fracture 20%, 10 year risk of hip fracture 4.7% Procedure Note Artur Torres MD - 09/03/2024 STUDY: DUAL ENERGY X-RAY ABSORPTIOMETRY / DXA REASON FOR EXAM: Female, 78 years old osteopenia and screen forosteoporosis TECHNIQUE: Bone Mineral Density (BMD) measurements of the lumbar spineand left hip were obtained using [employer] W (S/N [id number]). COMPARISON: December 06, 2021 FINDINGS: L1-L2 BMD: 1.052 g/cm2 L1-L2 T score: 0.7. This corresponds to Normal bone density. This represents a -0.6 % decrease in bone density compared with prior examfrom December 06, 2021. Left femoral neck BMD: 0.653 g/cm2 Left femoral neck T score: -1.8. This corresponds to osteopenia. Left total hip BMD: 0.743 g/cm2 Left total hip T score: -1.6. This corresponds to osteopenia. This represents a 3.9* % increase in bone density compared with prior examfrom December 06, 2021. * - Indicates a statistically significant change. FRAX score: 10 year risk of major osteoporotic fracture 20%, 10 year riskof hip fracture 4.7% IMPRESSION: Osteopenia Reference Information: The T-score is the number of standard deviations above or below thestandard which is normal for young adults at their peak bone mineraldensity. The World Health Organization (WHO) interprets the T-scores asfollows: At or above -1 SD Normal bone density Between -1 and -2.5 SD Osteopenia At or below -2.5 SD Osteoporosis -------- FINAL REPORT -------- Dictated By: Artur Torres Dictated Date: 09/03/2024 20:05 ET Assigned Physician: Artur Torres Reviewed and Electronically Signed By: Artur Torres Signed Date: 09/03/2024 20:07 ET Workstation ID: [id number] Transcribed By: Self Edit Transcribed Date: 09/03/2024 20:05 ET Dragan Daniels MD IMG DXA PROCEDURES Fin al Result * (ABNORMAL) Lipid panel with reflex to direct LDL (08/27/2024 7:48 AM EST) Cholesterol 207(H) 0 - 200 mg/dL LAB CHEMISTRY METHOD 08/27/2024 10:37 AM EST [facility] Triglycerides 68 0 - 150 mg/dL LAB CHEMISTRY METHOD 08/27/2024 10:37 AM EST [facility] HDL 76 >=40 mg/dL LAB CHEMISTRY METHOD 08/27/2024 10:37 AM EST [facility] LDL Calculated 117(H) 0 - 100 mg/dL LAB CHEMISTRY METHOD 08/27/2024 10:37 AM EST [facility] VLDL Cholesterol Manoj 13.6 mg/dL LAB CHEMISTRY METHOD 08/27/2024 10:37 AM EST [facility] Non HDL Chol. (LDL+VLDL) 131 <145 mg/dL LAB CHEMISTRY METHOD 08/27/2024 10:37 AM EST [facility] Chol/HDL Ratio 2.7 0.0 - 4.4 LAB CHEMISTRY METHOD 08/27/2024 10:37 AM EST [facility] Blood Venous blood specimen / Unknown Venipuncture / Unknown 08/27/2024 7:48 AM EST 08/27/2024 7:48 AM EST us Dragan Daniels MD LAB BLOOD ORDERABLES F inal Result [facility] [address] [place] [address], [place] [phone] * Hm Hepatitis C Screening (02/27/2013) Hepatitis C Screening abstracted Historical Provider MD HEALTH MAINTENANCE Final Result from Last 3 Months or Most Recently Relevant to Health Maintenance Additional Health Concerns Infection Onset Date Last Indicated [facility] 03/08/2025 03/08/2025 Insurance [employer] Care Teams Patch Sander Relationship Specialty Start Date End Date Dragan Daniels MD [address] [place] [address] PCP - General 02/19/24
--- OUTSIDE RECORDS SUMMARY | 2025-04-04 10:16 | XMS_ITS | Patient Health Record ---
Author Organization [facility] Address [address] [place], [place] [id number] Care Team Providers Care Meat Team Lead Name Role Phone Migration, Provider Unavailable Unavailable Allergies No Known Allergies Reason For Referral No Information Medications Medication SIG (Take, Route, Frequency, Duration) Notes Start Date End Date Status Losartan Potassium 25 MG Oral 1 time per day Active Aspirin 81 mg oral 1 time per day Active Synthroid 100 mcg oral 1 time per day Active Metoprolol Succinate 50 mg oral 1 time per day *Pick strength-form from [employer] for eRX* Active Problems Problem Type SNOMED Code ICD Code Onset Dates Problem Status W/U Status Risk Notes Problem Lyme disease (26911644) Lyme disease, unspecified (A69.20) Active confirmed Problem Hypothyroidism (92714503) Hypothyroidism , unspecified (E03.9) Active confirmed Problem Hyperlipidemia (08657779) Hyperlipidemia , unspecified (E78.5) Active confirmed currently not on medication Problem Eustachian tube disorder (20271088) Unspecified Eustachian tube disorder, unspecified ear (H69.90) Active confirmed Problem Essential hypertension (27201790) Essential (primary) hypertension (I10) Active confirmed Problem Heart failure (17457210) Heart failure, unspecified (I50.9) Active confirmed Problem Acute sinusitis (54413020) Acute sinusitis, unspecified (J01.90) Active confirmed Problem Arthropathy (139608991) Arthropathy, unspecified (M12.9) Active confirmed Problem Heart disease (15306836) Heart disease, unspecified (I51.9) Inactive confirmed Encounters Encounter Location Date Provider Diagnosis [facility] [address] [place], [place] [id number] 04/13/2024 Provider Migration [facility] [address] [place], [place] [phone] 04/14/2024 Provider Migration Plan Of Treatment No Information
--- OUTSIDE RECORDS SUMMARY | 2025-04-04 10:16 | XMS_ITS | Patient Health Record ---
[facility] Darya neetu [place] Address [address] [place] [address] Care Team Providers Care Ground Hand Name Role Phone Dragan Daniels Primary Care Provider Tom Cervantes Unavailable [phone] Allergies Allergen (clinical drug ingredient) Drug/Non Drug Allergy documented on EMR Reaction Allergy Type Onset Date Status amoxicillin Amoxicillin per pt no allergy 10/26/23 Drug Allergy Active erythromycin Erythromycin per pt no allergy 10/26/23 Drug Allergy Active Reason For Referral Diagnosis 1 Tinea unguium (B35.1 ) Referring Provider First Name Dragan Referring Provider Last Name Jeremiah [facility] Referred Provider Tom Meza Referred Address [address] [place] [address],[address],[place], [place],[address], Referred Provider Specialty Podiatry Referral Priority Routine Medications Medication SIG (Take, Route, Frequency, Duration) Notes Start Date End Date Status Cephalexin 500 MG 1 capsule Orally clint ry 12 hrs; Duration: 10 days Not-Taking Yuvafem Not-Taking Calcium Active Turmeric Not-Taking Meloxicam Not-Taking Aspirin Not-Taking Metoprolol Succinate Active Multivitamins Not-Ta kwadwo MetroCream 0.75 % 1 application to affected area Externally Twice a day Active Lidocaine 5 % 1 application to affected area as needed Externally Three times a day; Duration: 30 days 12/12/2016 Not-Taking Estradiol Active Estraderm Not-Taking Losartan Potassium 50 MG 1 tablet Once a day Active Estradiol Not-Taking Multi For Her Active Synthroid 100 MCG Orally Ac tive Immunizations Vaccine Route Administration Date Status Comme nts Influenza Unknown 04/28/2024 Administered COVID-19 Moderna Vaccine Unknown 09/22/2020 Administere d COVID-19 Moderna Vaccine Unknown 10/23/2020 Administere d 1st 09/23/2020 Social History Tobacco Use: Social History Observation Description Date Details (start date - stop date) Never Smoker NA - NA Alcohol Screen Question Answer Notes Did you have a drink containing alcohol in the p ast year? Yes Points 0 Interpretation Negative Tobacco use other than smoking: Question Answer Notes Are you an other tobacco user? No Tobacco Control (Standard) Question Answer Notes Tobacco use: Nonsmoker Additional Findings: Tobacco non-user Current no nsmoker AUDIT-C (Standard) Question Answer Notes Did you have a drink containing alcohol in the p ast year? No Points 0 Interpretation Negative Problems Problem Type SNOMED Code ICD Code Onset Dates Problem Status W/U Status Risk Notes Problem Tinea unguium (B35.1) Active confirmed Vital Signs Blood pressure diastolic 78 mm Hg 04/03/2025 Height 5 ft 4 in in 04/03/2025 Blood pressure systolic 121 mm Hg 04/03/2025 Weight 134 lbs 04/03/2025 BMI 23 kg/m2 04/03/2025 Procedures Procedure Date Ordered Date Performed Result Body Sit e 79222-PPOSUVX NAIL, 6 OR MORE 07/01/2024 N/A 81275-IKTTOOG NAIL, 6 OR MORE 10/02/2024 N/A 71492-OPLYSBP NAIL, 6 OR MORE 2024 N/A 74421-TBSYJLJ NAIL, 6 OR MORE 04/03/2025 N/A Encounters Encounter Location Date Provider Diagnosis [facility] [address] 07/01/2024 Tom Derrick Tinea unguium B35.1 ; Pain in right toe(s) M79.674 and Pain in left toe(s) M79.[address] [facility] [address] 10/02/2024 Tom Derrick Tinea unguium B35.1 ; Pain in right toe(s) M79.674 and Pain in left toe(s) M79.[address] [facility] [address] 2024 Tom Derrick Tinea unguium B35.1 ; Pain in right toe(s) M79.674 and Pain in left toe(s) M79.[address] [facility] [address] 04/03/2025 Tom Meza Tinea unguium B35.1 ; Pain in right toe(s) M79.674 and Pain in left toe(s) M79.[address] [address] 02/24/2025 [facility] Derrick [facility] [address] [place] [address] 02/24/2025 Tom Derrick Assessments Encounter Date Diagnosis (ICD Code) Assessment Notes Treatment Notes Treatment Clinical Notes Section Notes 07/01/2024 Tinea unguium (ICD-10 - B35.1) 07/01/2024 Pain in right toe(s) (ICD-10 - M79.674) 10/02/2024 Tinea unguium (ICD-10 - B35.1) 10/02/2024 Pain in right toe(s) (ICD-10 - M79.674) 2024 Tinea unguium (ICD-10 - B35.1) 2024 Pain in right toe(s) (ICD-10 - M79.674) 04/03/2025 Tinea unguium (ICD-10 - B35.1) 04/03/2025 Pain in right toe(s) (ICD-10 - M79.674) 04/03/2025 Pain in left toe(s) (ICD-10 - M79.675) 2024 Pain in left toe(s) (ICD-10 - M79.675) 10/02/2024 Pain in left toe(s) (ICD-10 - M79.675) 07/01/2024 Pain in left toe(s) (ICD-10 - M79.675) Plan Of Treatment Pending Test Test Name Order Date 85360-FFJUBYB NAIL, 6 OR MORE 08/17/2011 83139-WVXQSOR NAIL, 6 OR MORE 01/05/2012 79086-YTEIYMR NAIL, 6 OR MORE 03/15/2012 88245-RRRRMGF NAIL, 6 OR MORE 05/24/2012 62674-VSWERIW NAIL, 6 OR MORE 08/09/2012 43061-QWILEEZ NAIL, 6 OR MORE 11/29/2012 71150-VSHJNZM NAIL, 6 OR MORE 02/21/2013 76708-WHMFWYB NAIL, 6 OR MORE 06/06/2013 99551-JCDMYXI NAIL, 6 OR MORE 08/08/2013 79918-BCTALEF NAIL, 6 OR MORE 12/09/2013 15628-IDFVDCG NAIL, 6 OR MORE 03/06/2014 58384-MMNMHQA NAIL, 6 OR MORE 05/26/2014 44204-VIYYJHB NAIL, 6 OR MORE 08/07/2014 50920-YVOSJDJ NAIL, 6 OR MORE 12/11/2014 87324-OFFAXDD NAIL, 6 OR MORE 03/05/2015 78429-CGFGLBH NAIL, 6 OR MORE 06/03/2015 94689-BNZEZEA NAIL, 6 OR MORE 08/17/2016 86242-JBPPKWR NAIL, 6 OR MORE 12/12/2016 73044-XUPISCV NAIL, 6 OR MORE 03/13/2017 47063-LULXFGJ NAIL, 6 OR MORE 07/10/2017 04496-QMHALGR NAIL, 6 OR MORE 12/10/2018 50025-VYELNEP NAIL, 6 OR MORE 02/18/2019 97046-GEUSHXF NAIL, 6 OR MORE 05/20/2019 16870-WMOCMPK NAIL, 6 OR MORE 08/07/2019 31483-ZRLKEQM NAIL, 6 OR MORE 01/29/2020 22506-SRFYKRC NAIL, 6 OR MORE 06/25/2020 04268-SFHPVOV NAIL, 6 OR MORE 03/18/2021 95077-AMKNDGG NAIL, 6 OR MORE 05/31/2021 35448-FXEOFUI NAIL, 6 OR MORE 11/30/2022 66374-AIQLPZQ NAIL, 6 OR MORE 04/13/2020 02905-GZKRSEY NAIL, 6 OR MORE 04/13/2023 95581-VFIAXBH NAIL, 6 OR MORE 10/26/2023 03038-JBXIILW NAIL, 6 OR MORE 03/28/2024 64275-RZNBPMK NAIL, 6 OR MORE 07/01/2024 86201-OVGQWIV NAIL, 6 OR MORE 10/02/2024 82205-FESEYAR NAIL, 6 OR MORE 2024 33444-ZUHHHSG NAIL, 6 OR MORE 04/03/2025 62142-Zpjg Destruction, 1-04/13/2020 38492-Jcod Destruction, 1-01/29/2020 75217-Qtiw Destruction, 1-14 01/05/2012 06913-Obsvslaf Plate 03/15/2012 89910-Usoyhmeg Plate 05/24/2012 76178-Qrntyeqd Plate 01/05/2012 69211-Bvkuqjds Plate 08/17/2011 74131-Xgtfsjqe Plate 06/06/2013 31353-Iyhmepmi Plate 02/21/2013 80141-Gwouaggw Plate 11/29/2012 50248-Xnuyonyl Plate 08/09/2012 57309-Nudwoxyo Plate 06/03/2015 57024-Psxjhzbm Plate 03/05/2015 43144-Skhcgovx Plate 12/11/2014 28561-Jfyehpuo Plate 08/07/2014 99734-Dnzlwret Plate 05/26/2014 75697-Jtrekfwq Plate 03/06/2014 55273-Fwfuvslg Plate 12/09/2013 67520-Vnauzehx Plate 08/08/2013 70846-Botxwmjo Plate 08/12/2015 99513-Kituyfcz Plate 04/18/2016 38473-Omkcccju Plate 11/30/2022 46551-Iednqpkw Plate 06/08/2023 96003-Rwaxpgiy Plate Each Additional 07/2023 58752-Pmlcdfsg Plate Each Additional 12/2022 09080-Stbuvjsa Plate Each Additional 11/2012 26246-Ulixqnoj Plate Each Additional 66240-Qqtsetqm Plate Each Additional 05/2014 66750-Fzxhdwhd Plate Each Additional 03363-Oejudxrq Plate Each Additional 06/2014 95941-Ykpkwdtt Plate Each Additional 38841-Jnlfstcv Plate Each Additional 04/2015 82736-Jhnevkkd Plate Each Additional 02/2015 12612-Cxkpgkbd Plate Each Additional 09150-Mgwzszmg Plate Each Additional 32162-RLR 06/15/2016 97863-CXC 12/20/2023 71010- Debride <25 sq cm 12/16/2022 90220- Debride <25 sq cm 12/26/2022 33935- Debride <25 sq cm 08/01/2016 07965-ECTLFLZ SKIN/TISSUE 07/14/2016 16055-ZFCZZAO SKIN/TISSUE 06/30/2016 21612 I&D ABSCESS- SIMPLE,SINGLE 016 23250 I&D ABSCESS- SIMPLE,SINGLE 016 43286 I&D ABSCESS- SIMPLE,SINGLE 023 06652-Nagb. Subungual Hematoma 3 Next Appt Details Provider Name:Tom Meza , 07/07/2025 02:00:00 PM, [address] [facility], [address], [place], [address], Insurance Providers Payer Name Payer Address Payer Phone Subscriber Number Group Number Insured Name Patient Relationship to Insured Coverage Start Date Coverage End Date [facility] [address] [place] [address] [id number] Yumiko Messina Self - patient is the insured Medical (General) History Medical History History ICD Code chicken pox Headaches/Migraines heart failure IBS Lyme Disease lumber disc herniation measles mumps osteoarthritis osteopenia osteoporosis polyps rosacea spinal stenosis thyroid disorder Surgical History Surgery Date(Month/Year) hysterectomy 1948 tendon transfer right thumb 04/17/2012 Lt and Rt cataract 12/2017 and 01/2018 Right foot surgery - 5th [place] Fx ORIF 11/23 Hospitalization History Reason Date(Month/Year) [facility]- fell 01/06/24 [facility] disease 04/2017
--- NOTE | 2025-04-04 14:46 | HO.SPINEOV ---
Intake Visit Reasons: lumbar radiculopathy Assessment & Plan Assessment & Plan (1) Lumbar stenosis with neurogenic claudication: Code(s): M48.062 - Spinal stenosis, lumbar region with neurogenic claudication Category: Medical Plan Dear colleague Thank you for referring Yumiko Messina to the office today with a chief complaint of left leg pain. HPI: This 79-year-old female has an on and off history of left leg pain. Recently this change. She developed an acute pain approximately 2 months ago that is not going away. She takes ibuprofen to control the pain. The pain radiates with the left side of the back to her thigh to the front of his adamson. No numbness or weakness. Walking and standing provokes the symptoms. Sitting down or laying down relieves the symptoms. No conservative treatments other than NSAIDs were done PMH: Hypertension, hypothyroidism Medications: Synthroid, losartan done, metoprolol, Estraderm patch Allergies: NKDA Social history: . Nonsmoker Physical Exam: Pleasant female height 5'4 weight 134 lb. Straight leg raise is negative bilaterally. No motor or sensory deficits. No pathological reflexes. She ambulates in a flexed position Radiological Studies: MRI of the lumbar spine done at [place] on 03/06/2025 shows severe lumbar degenerative disc disease L4-S1. There is a retrolisthesis L2-3 with moderate stenosis. There is right lateral recess stenosis at L3-4. Moderate L4-5 central stenosis and lateral recess stenosis with severe left L4 foraminal stenosis. Impression/Plan: This patient is suffering from unilateral neurogenic claudication, left side, most likely related due to the severe left L4 foraminal stenosis and L4-5 lateral recess stenosis. I do not think that the severe L2-3 spinal stenosis is involved in her symptomatology. She is currently not interested in surgery. I referred her back to Dr. Ulloa for an epidural steroid injection Thank you for allowing me to participate in your patients care. total time spent was 50 minutes in counseling ,coordination of plan, personal review of imaging, surgical decision making and subsequent plan Gabriel Miles MD, PhD Spine Fellowship Trained Neurosurgeon Director, [facility] Orders: Orders XR lumbar spine 4V min Today M48.062 - Spinal stenosis, lumbar region with neurogenic claudication Coding Level of Care Code New Pt Level 4 (54288) Diagnoses Lumbar stenosis with neurogenic claudication M48.062
== END 2025-04-04 15:41 | disposition home or self-care (01) ==
PROVIDERS: PCP Internal Medicine; Referring Provider Physical Medicine & Rehabilitation; Visit Provider Neurological Surgery
DX: M48.062 Spinal stenosis, lumbar region with neurogenic claudication (principal)
CPT/HCPCS: 99204

== ENCOUNTER → 2025-04-04 14:48 | Outpatient (BNV) | payer OTHER, SELFPAY | PROVIDERS: PCP Internal Medicine; Referring Provider Physical Medicine & Rehabilitation; Visit Provider Radiology Diagnostic Radiology | DX: M47.816 Spondylosis without myelopathy or radiculopathy, lumbar region (principal) | CPT/HCPCS: 72110 ==

== ENCOUNTER 2025-07-31 08:28 | Outpatient (AMB) | payer OTHER, SELFPAY ==
--- NOTE | 2025-07-31 08:31 | A.PHYSOV ---
Vital Signs 07/31/25 08:32 Height 5 ft 4 in Weight 134 lb BMI 23.0 Intake Visit Reasons: F/U after injection 05/31/2025 Intake Note: Patient is a 79 year old female in office today for a follow up after Left L3 and L4 Transforaminal Epidural Injection 05/31/25. Patient states her pain is coming back bilaterally Allergies amoxicillin Allergy (Unknown, Verified 07/23/25 13:47) Unknown erythromycin base Allergy (Unknown, Verified 07/23/25 13:47) Unknown HPI Comments Details: History of Present Illness The patient is a 79 year old female presenting for a follow-up visit for chronic lower back pain. Her last visit was on May 28, 2025. An MRI of the lumbar-sacral spine from March 06, 2025, demonstrated multilevel central and neural foraminal stenosis, which is exacerbated by standing and walking. She was evaluated by a neurosurgical team but declined surgery. Subsequently, the patient underwent left L3 and L4 transforaminal injections in the office on May 31, 2025, which provided approximately 80% pain relief initially and resolved her limp. She reports the pain is now returning bilaterally in her back and buttocks, though she still feels somewhat better than she did prior to the injection. The patient noted the injection procedure was uncomfortable. The patient also reports new neck pain that has been persistent. She notes that it cracks frequently but denies any numbness, tingling, or pain radiating into her arms or shoulders. She had an MRI of her neck several years ago. Patient reports increasing pain that is now involved both lower extremities. Pain continues to be exacerbated by standing and relieved by sitting down. Pain Description - Location: Chronic lower back pain, which is now bilateral and includes pain in both buttocks. - New Onset: New pain in the neck. - Quality: Neck pain is associated with cracking. - Exacerbating Factors: Lower back pain is aggravated by standing and walking. - Relieving Factors: Taking a break to sit or leaning forward helps her back pain when walking. - Associated Symptoms: Denies numbness, tingling, or arm pain related to her neck symptoms. Results - Imaging: MRI of the lumbar-sacral spine from March 06, 2025, showed multilevel central and neural foraminal stenosis, moderate to severe spinal stenosis at the L2-L3 and L3-L4 levels, moderate spinal stenosis at the L4-L5 level. [facility] Medical History (Updated 07/31/25 @ 12:32 by Haim Ulloa DO) Neck pain Lumbar radiculitis Surgical History H/O: hysterectomy (Unknown) History of tonsillectomy (Unknown) History of hand surgery (Unknown) History of breast biopsy (Unknown) Social History Household Members: Spouse Alcohol intake: current Alcohol intake frequency: holidays/special occasions only Use of substances other than those prescribed or required for medical reasons: No Review of Systems Narrative Review of Systems - Musculoskeletal: Reports chronic lower back pain, now bilateral, extending into both buttocks. - Reports new, persistent neck pain with associated cracking sounds. - Denies shoulder pain. - Neurological: Denies numbness, tingling, or pain radiating into her arms. Physical Exam Exam Exam: Physical Exam Patient appears to be in no acute distress, appropriately conversant oriented. She was able to ambulates without antalgia, forward flexed posture. Lumbar extension was restricted. Dural tension signs were negative. Neurological examination of upper and lower extremities was nonfocal. She was able to perform heel walk and toe walk with support for balance. Cervical range of motion was restricted in all planes. Spurling maneuver was negative. Lhermitte's sign was negative. Patient demonstrated no upper motor neuron signs. Vital Signs: BMI result Body Mass Index 23.0 Assessment & Plan Assessment & Plan (1) Lumbar stenosis with neurogenic claudication: Code(s): M48.062 - Spinal stenosis, lumbar region with neurogenic claudication Category: Medical (2) Lumbar radiculitis: Code(s): M54.16 - Radiculopathy, lumbar region Category: Medical (3) Neck pain: Code(s): M54.2 - Cervicalgia Category: Medical Plan Pain Management - Analgesia: A left L3-L4 transforaminal injection two months ago provided 80% initial pain relief, but the effect is diminishing. - She reports her pain is not as severe as it was pre-injection. - The patient uses Tylenol Arthritis and occasionally ibuprofen 600 mg for pain. - Adverse Effects: She found the in-office injection to be uncomfortable and screamed from the discomfort. - Activities of Daily Living: Pain is exacerbated by prolonged standing and walking. - She is not ready for another injection at this time and prefers to wait. - Aberrant Drug Related Behaviors: None noted. Plan Patient was informed and verbally consented to the use of an ambient scribe for clinic note documentation during this visit. 1. Lumbar Spinal Stenosis The patient has known multilevel lumbar spinal stenosis confirmed by MRI. She had a good response to a left L3, L4 transforaminal injections with 80% initial relief, but symptoms are now returning bilaterally. At her request, we will defer further injections for now. When she is ready, options include a repeat injection under sedation at the hospital for comfort, or an interlaminar epidural steroid injection, which may be less painful and more appropriate for her bilateral symptoms. Advised on activity modification, including taking breaks when walking and the potential use of a walker with a seat. Discussed medication management, advising against Tylenol Arthritis and recommending Extra Strength Tylenol 500mg, up to 1000mg per dose, no more than three times a day. Recommended initiating turmeric 2000mg daily with black pepper for its anti-inflammatory effects. 2. Cervicalgia The patient has new onset of neck pain without radicular symptoms, likely due to degenerative changes. She is not seeking intervention at this time. Physical therapy was recommended as a future option. Discussion Notes I saw the patient today for a two-month follow-up after her left L3-L4 transforaminal epidural steroid injection for lumbar spinal stenosis. We discussed that she had an excellent initial response with 80% pain reduction, but her symptoms are now starting to return bilaterally into her buttocks. She is not ready for another injection at this time and would prefer to wait. I explained that when she is ready for another procedure, we have options. Given her discomfort with the last in-office procedure, we could perform the next injection at the hospital with sedation. Alternatively, since her pain is now more spread out, we could try an interlaminar approach in the middle of her back, which is typically less painful. I advised her that insurance approval for a repeat procedure is likely, given her positive response to the first one. We discussed activity modification, and I encouraged her to continue walking but to take frequent breaks by sitting or leaning forward to alleviate pain. I also reviewed safer use of bafk-mei-bemgage analgesics, recommending Extra Strength Tylenol over Tylenol Arthritis, and advised her to start a daily turmeric supplement for its anti-inflammatory properties. Regarding her new neck pain, I explained it is likely from wear and tear and that physical therapy would be a good option if it worsens. Patient Instructions - For your back pain, continue walking but take a short break to sit down or lean against something if the pain starts. - You can use Extra Strength Tylenol (500 mg pills) for pain. - It is safe to take two pills at once, up to three times per day. - Consider taking a turmeric supplement every day for inflammation. - You will need about 2000mg per day, and make sure the product contains black pepper. - For your neck pain, physical therapy may be helpful if you decide you want to treat it. - We will hold off on another back injection for now. - When you are ready, we can discuss doing the next one at the hospital to make you more comfortable or trying a different type of injection in the office that is usually less painful. Coding Level of Care Code Est Pt Level 4 (21896) Complex visit Add On G2211 Diagnoses Lumbar stenosis with neurogenic claudication M48.062 Lumbar radiculitis M54.16 Neck pain M54.2
[2025-07-31 08:32] VITALS: BMI 23.0
--- OUTSIDE RECORDS SUMMARY | 2025-07-31 09:06 | XMS_ITS | Encounter Summary ---
Author Organization [facility] Address [address] [place] [address] Care Team Providers Care Student Services Counselor Name Role Phone Dragan Daniels MD Primary Care Provider Encounter Details Date Type Department Care Team (Late st Contact Info) Description 07/28/2025 Results Follow-Up Adult Medicine [facility] [address] [place] [address] Ashley Mena PA [address] [place], [place] Social History Tobacco Use Types Packs/Day Years Used Date Smoking Tobacco: Former Cigarettes 1 Q uit: 08/28/1979 Smokeless Tobacco: Never Alcohol Use Standard Drinks/Week Comments Yes 0 (1 standard drink = 0.6 oz pur e alcohol) Housing Instability Answer Date Recorde d Are you worried that in the next 2 months you may not have stable housing? No 07/23/2025 Food Access & Nutrition Answer Date Rec orded Do you have access to a vari ety of food including fruits and vegetables? Yes 07/23/2025 Health Literacy Answer Date Recorded How often do you need to hav e someone help you when you read instructions, pamphlets, or other written material from your doctor or pharmacy? Never 07/23/2025 Caregiver: How often do you need to have someone help you when you read instructions, pamphlets, or other written material from your doctor or pharmacy? Not on file 07/23/2025 Financial Risk Answer Date Recorded How hard is it for you to pa y for the very basics like food, housing, medical care, and air conditioning / heating? Not very hard 07/23/2025 Transportation Answer Date Recorded Has the lack of transportati on kept you from meetings, work, or from getting things needed for daily living? No 07/23/2025 Has the lack of transportati on kept you from medical appointments or from getting medications? Patient declined 07/23/2025 Social Isolation Answer Date Recorded How often do you feel lonely or isolated from th ose around you? Never 07/23/2025 Food Risk Answer Date Recorded Within the past 12 months we worried whether our food would run out before we got money to buy more. Never true 07/23/2025 Within the past 12 months th e food we bought just didn't last and we didn't have money to get more. Never true 07/23/2025 Dependent Care Answer Date Recorded Do you need help finding or paying for care for your loved ones. For example, early childhood coordinator or elderly care for an older adult? Patient declined 07/23/2025 Education Answer Date Recorded Do you think completing more education or training, like finishing a GED, going to college, or learning a trade, would be helpful for you? Patient declined 07/23/2025 Employment and Income Answer Date Recor ded During the last four weeks, have you been actively looking for work? Patient declined 07/23/2025 Living Situation Answer Date Recorded What is your living situation? Unrecognized valu e 07/23/2025 Comments No Sex and Gender Information Value Date Recorded Sex Assigned at Not on file Legal Sex Female 11:20 PM EST Gender Identity Not on file Sexual Orientation Not on file documented as of this encounter Functional Status * Are you deaf or do you have serious difficulty hearing? Answer Date of Assessment Author No 03/05/2025 10:17 PM Lenin Macdonald RN * Are you blind or do you have serious difficulty seeing, even when wearing glasses? Answer Date of Assessment Author No 03/05/2025 10:17 PM Lenin Macdonald RN * Do you have serious difficulty walking or climbing stairs? Answer Date of Assessment Author No 03/05/2025 10:17 PM EDT Lenin Lei RN * Do you have serious difficulty dressing or bathing? Answer Date of Assessment Author No 03/05/2025 10:17 PM EDT Lenin Lei RN * Because of a physical, mental, or emotional condition, do you have serious difficulty doing errandsalone such as visiting the doctor? Answer Date of Assessment Author No 03/05/2025 10:17 PM EDLenin Gray RN documented as of this encounter Mental Status * Because of a physical, mental, or emotional condition, do you have serious difficulty concentrating, remembering, or making decisions? (5 years old or older) Answer Entry Date Author No 03/05/2025 10:17 PM Lenin Macdonald RN documented in this encounter Plan of Treatment Upcoming Encounters Date Type Department Care Team (Late st Contact Info) Description 09/02/2025 8:40 AM EST Appointment Radiology Department [address] [phone] 11/18/2025 9:30 AM EDT Office Visit Adult Medicine [address] [phone] Dragan Daniels MD [address] [place] [address] documented as of this encounter Visit Diagnoses Not on filedocumented in this encounter Additional Health Concerns Infection Onset Date Last Indicated Resolved Time [facility] 03/08/2025 03/08/2025 Assessment Noted Time PHQ-9 Depression Total Score: 0 05/21/20 25 9:20 AM EDT A fall risk assessment has been complete d for the patient 07/23/2025 9:21 AM EST documented as of this encounter Care Teams Student Services Counselor Relationship Specialty Start Date End Date Dragan Daniels MD [address] [place] [address] PCP - General 02/19/24 documented as of this encounter
--- OUTSIDE RECORDS SUMMARY | 2025-07-31 09:06 | XMS_ITS | Clinical Summary ---
Author Organization [facility] Address [address] [facility] [address] [place] [phone] Phone Care Team Providers Care Manufacturing Mechanic Name Role Phone Zuleyka Fan MD Primary Care Provider [phone] Allergies Active Allergy Reactions Criticality Noted Date Comments Amoxicillin Rash Low 02/27/2013 Erythromycin GI Upset 07/28/2016 Medications losartan (COZAAR) 25 MG tablet Take 50 mg by mouth daily. Active metoprolol tartrate (LOPRESSOR) 25 MG tablet Take 50 mg by mouth daily. Active TURMERIC ORAL Take by mouth as needed. Active Medication-Free TextIndications:C alcium gummies 1,000 mg daily Activ e therapeutic multivitamin tablet Take 1 tablet by mouth daily. Active soy isofla/blk cohosh/mag bark (ESTROVEN ORAL) Take by mouth. Active aspirin 81 MG EC tablet Take 81 mg by mouth daily. Active estradioL (VIVELLE-DOT) 0.0375 mg/24 hrIndications:Vas omotor symptoms due to menopause Place 1 patch onto the skin 2 (two) times a week. 24 patch 06/03/2021 Active levothyroxine (SYNTHROID, LEVOTHROID) 100 MCG tablet Take 100 mcg by mouth every morning. Active Active Problems Problem Noted Date Diagnosed Date Trigger middle finger of left hand 01/27/2024 Assessment & Plan (01/27/2024 6:38 PM EDT): Triggering of the left ring and middle fingers over a small nodule. Injected the interdigital space between both MCPs which should resolve the triggering. Primary osteoarthritis involving multiple joints 01/27/2024 Assessment & Plan (01/27/2024 6:38 PM EDT): Osteoarthritis in multiple joints with erosive findings in both hands. She is angulated IP nodes in many fingers. She has no active synovitis. She can continue with Tylenol 650 mg as needed. Pelvic floor relaxation 08/17/2018 Overview (08/17/2018): Mild symptoms related primarily to fecal soiling. May consider pelvic floor exercises/physical therapy. Assessment & Plan (08/17/2018 10:36 PM EST): Mild symptoms related primarily to fecal soiling. May consider pelvic floor exercises/physical therapy. Screening for breast cancer 08/09/2018 Encounter for annual routine gynecological exami [facility] 08/09/2018 Overview (08/09/2018): Prior pt of [facility]. Atrophic vaginitis 08/09/2018 Fecal soiling due to fecal incontinence 08/09/20 18 Overview (08/09/2018): Mild; usu with exercise and a lot of walking. Stress incontinence in female 08/09/2018 Overview (08/09/2018): Mild. Wears a pad just in case. Vasomotor symptoms due to menopause 08/09/2018 Assessment & Plan (08/12/2019 10:42 AM EST): Continues with good relief and ERT. We will continue using patch weekly. Offered twice sleep weekly patch for the lower dose, 0.025, which patient declines. Hormone replacement therapy (postmenopausal) Assessment & Plan (08/17/2018 10:38 PM EST): Risks/benefits of HRT reviewed with pt. Pt feels quality of life much better with HRT patch and she desires to resume. Will call with dosing of patch since I am not in receipt of old records. Immunizations Immunization Administration Dates Next Due INFLUENZA, SPLIT VIRUS, TRIV ALENT W/ PRESERVATIVE IM 06/10/2015,06/05/2014,06/21/2013,08/10,07/17/2008 Influenza High-Dose Trivalen t Preservative Free IM 05/13/2018,05/20/2016 Influenza, Unspecified Formulation 06/11/2017 Pneumococcal conjugate PCV13 04/22/2016 Pneumococcal polysaccharide PPSV23 02/24/2011 Zoster live 07/15/2019,06/16/2011 Zoster recombinant 04/26/2019 Family History Medical History Relation Comments Leukemia Father Liver cancer Mother Thyroid disease Sister Relation Status Comments Father Mother Sister Social History Tobacco Use Types Packs/Day Years Used Date Smoking Tobacco: Former Cigarettes Smokeless Tobacco: Never Alcohol Use Standard Drinks/Week Comments Yes 7 (1 standard drink = 0.6 oz pur e alcohol) Education Answer Date Recorded Are you interested in more education? Not on humberto e 2022 Are you concerned about learning? Not on file 2022 No 2022 No 2022 Digital Access Answer Date Recorded No 01/21/2023 No 01/21/2023 Reliable internet access at home? Not on file 01/21/2023 Device with a working camera? Not on file Comments No Sex and Gender Information Value Date Recorded Sex Assigned at Not on file Legal Sex Female 3:26 PM EDT Gender Identity Not on file Sexual Orientation Not on file Occupation Industry Job Start Date Job End Date Retired Not on file Not on file Not on file Last Filed Vital Signs Vital Sign Reading Time Taken Comments Blood Pressure 138/66 01/28/2025 9:56 AM EDT Pulse 67 01/28/2025 9:56 AM EDT Temperature - - Respiratory Rate - - Oxygen Saturation 97% 01/28/2025 9:56 AM EDT Inhaled Oxygen Concentration - - Weight 59.9 kg (132 lb) 01/28/2025 9:56 AM EDT Height 161.3 cm (5' 3.5 ) 01/11/2024 1:50 PM EDT Body Mass Index 23.02 01/11/2024 1:50 PM EDT Plan of Treatment Health Maintenance Due Date Last Done Comments CREATININE LEVEL 1945 POTASSIUM LEVEL 1945 DEPRESSION SCREENING 1957 SMOKING Hx and SMOKELESS TOBACCO SCREENING 1958 HEPATITIS C SCREENING 12/24/1963 ZOSTER VACCINES (3 of 3) 09/09/201907/15/ 019, 04/26/2019, 06/16/2011 RSV VACCINE (1 - 1-dose 75+ series) 2020 INFLUENZA VACCINE (#1) 2025 8, 06/11/2017, 05/20/2016, Additional history exists COVID-19 VACCINE ( - season) 2025 TSH LEVEL 08/27/2025 08/27/2024 LIPID PANEL 08/27/2029 08/27/2024 Adult Td,Tdap Booster 01/06/2034 01/07/2024 PNEUMOCOCCAL VACCINES (50+ years) Completed 04/22/2016, 02/24/2011 OSTEOPOROSIS SCREENING INITIAL (ONE-TIME) Completed 09/03/2024 HEPATITIS A VACCINES Aged Out No long er eligible based on patient's age to complete this topic HIB VACCINES Aged Out No longer eligi ble based on patient's age to complete this topic MENINGOCOCCAL VACCINES (ACWY) Aged Out No longer eligible based on patient's age to complete this topic MENINGOCOCCAL VACCINES (B) Aged Out N o longer eligible based on patient's age to complete this topic Medical Devices Not on file Insurance [facility] [employer] [facility] [facility] [place] [address] [address] [place] [address] [place] [address] [address] [employer] Care Teams Manufacturing Mechanic Relationship Specialty Start Date End Date Zuleyka Fan MD [address] [place] [id number] PCP - General Internal Medicine 01/22/25 Additional Source Comments The information contained in this document represents components of the legal health record. It is not the complete legal health record.[facility]
--- OUTSIDE RECORDS SUMMARY | 2025-07-31 09:07 | XMS_ITS | Clinical Summary ---
Author Organization [facility] Address [address] [place] [address] Care Team Providers Care Lab Technician Name Role Phone Leonardo Archibald MD Primary Care Provider Allergies No known active allergies Medications calcium-vitamin D (OYSTER SHELL CALCIUM-VIT D3) 500 mg-5 mcg (200 unit) tablet Take by mouth Active estradioL (CLIMARA) 0.025 mg/24 hr APPLY 1 PATCH TOPICALLY TO THE SKIN WEEKLY 2 Active ibuprofen (MOTRIN) 600 MG tablet 5 Active levothyroxine (SYNTHROID) 100 MCG tablet Take 1 tablet (100 mcg total) by mouth 0 Active losartan (COZAAR) 50 MG tablet Take 1 tablet (50 mg total) by mouth Active losartan (COZAAR) 25 MG tablet Take 2 tablets (50 mg total) by mouth Active metoprolol (TOPROL-XL) 50 MG 24 hr tablet Take 1 tablet (50 mg total) by mouth 4 Active therapeutic multivitamin (THERAGRAN) tablet Take 1 tablet by mouth Active estradioL (CLIMARA) 0.025 mg/24 hr See Instructions, 1 patch Topically weekly, # 12 patch, 3 Refills, Maintenance, 01/16/25 1:56:00 PM EDT, [facility], Partial fill upon patient request if the prescription is for a schedule II opioid drug., 160.8, cm, 03/12/24 14:27:00 EDT, Height 5 Active calcium carbonate-vitami n D3 (CALCIUM 500 WITH D) 500 mg-10 mcg (400 unit) tab Take by mouth 7 Active cetirizine (ZyrTEC) 5 MG chewable tablet Take 1 tablet (5 mg total) by mouth daily 30 tablet 11 5 026 Active Active Problems No known active problems Encounters Date Type Department Care Team Description 06/16/2025 9:00 AM EDT [facility] [address] [place] [address] Georgia Peterson, LAURA Acute nasopharyngitis (common cold) (Primary Dx); White coat syndrome with diagnosis of hypertension; Other cough 06/09/2025 9:20 AM EDT Office Visit [facility] [address] [place] [address] June Lakhani NP Candidal stomatitis (Primary Dx); Hypertension, unspecified type from Last 3 Months Social History Tobacco Use Types Packs/Day Years Used Date Smoking Tobacco: Never Passive Smoke Exposure: Never Smokeless Tobacco: Never Tobacco Cessation:Counseling Given: Not Answered PHQ-2 Answer Date Recorded PHQ-2 Score Patient declined 06/16/2025 Comments Unknown Sex and Gender Information Value Date Recorded Sex Assigned at Not on file Legal Sex Female 11:46 AM EDT Gender Identity Not on file Sexual Orientation Not on file Last Filed Vital Signs Vital Sign Reading Time Taken Comments Blood Pressure 158/76 06/16/2025 9:06 AM EDT Pulse 65 06/16/2025 9:05 AM EDT Temperature 36.4 C (97.5 F) 06/16/2025 9:05 AM EDT Respiratory Rate 18 06/16/2025 9:05 AM EDT Oxygen Saturation 98% 06/16/2025 9:05 AM EDT Inhaled Oxygen Concentration - - Weight - - Height - - Body Mass Index - - Plan of Treatment Health Maintenance Due Date Last Done Comments Hepatitis C Virus Infection in Adolescents and Adults: Screening (or Modifier) ([facility]) 12/24/1963 [facility] Screening Reminder: Mary youssef for all adults ([facility]) 12/24/1963 RSV Vaccines (1 - 1-dose 75+ series) 2020 Flu Vaccination: Ages 65+: Y early High Dose Recommended (or Modifier)([facility]) 03/28/2025 04/28/2024, 05/13/2018, 06/19/2017, Additional history exists COVID-19 Vaccine Screening: Initial Series and Booster Status ([facility]) ( season) 2025 11/30/2021, 06/21/2021, 10/23/2020, Additional history exists Depression: Screening Annual ly using PHQ-2/9 in Adults 18 yrs or above (or HM Modifier)([facility] ) 06/09/2026 06/09/2025 Osteoporosis Screening to Pr event Fractures: Women aged 65 years+ ([facility] ) 09/03/2026 09/03/2024, 09/03/2024 DTaP/Tdap/Td Vaccines ([facility]) (2 - Td or Tdap) 01/06/2034 01/07/2024, 12/04/2018, 02/16/2009 Pneumococcal Vaccination Screening: Patients 50+ yrs of age ([facility] ) Completed 04/22/2016, 02/24/2011 Zoster/Shingles Vaccine Seri es Screening: Adults aged 18+ yrs (or HM Modifiers)([facility] ) Completed 07/17/2020, 07/17/2019, 07/15/2019, Additional history exists Medical Devices Not on file Insurance [place] [id number] Care Teams Lab Technician Relationship Specialty Start Date End Date Leonardo Archibald MD [address] [place] [address] PCP - General Internal Medicine 06/09/25
--- OUTSIDE RECORDS SUMMARY | 2025-07-31 09:07 | XMS_ITS | Encounter Summary ---
Author Organization [facility] Address [address] [place] [address] Care Team Providers Care Manager Critical Care Unit Name Role Phone Dragan Daniels MD Primary Care Provider Reason for Visit * Reason Onset Date Comments Neck Pain 07/17/2025 Encounter Details Date Type Department Care Team (Late st Contact Info) Description 07/17/2025 Telephone Adult Medicine [facility] [address] [place], [place] [phone] Dragan Daniels MD [address] [place], [place] Social History Tobacco Use Types Packs/Day [...] do you feel lonely or isolated from ose around you? Never 08/19/2024 Food Risk [...] care for your loved ones. For example, care process manager or elderly care for an older adult? [...] is your living situation? Unrecognized valu e 08/19/2024 Comments No Sex and Gender Information Value [...] 03/05/2025 10:17 PM Lenin Macdonald RN * Because of a physical, mental, or emotional condition, do you have serious difficulty doing errandsalone such as visiting the doctor? Answer Date of Assessment Author No 03/05/2025 10:17 PM Lenin Macdonald RN documented as of this encounter Mental Status * Because of a physical, mental, or emotional condition, do you have serious difficulty concentrating, remembering, or making decisions? (5 years old or older) Answer Entry Date Author No 03/05/2025 10:17 PM Lenni Macdonald RN documented in this encounter Progress Notes * Kavitha Pierson RN - 07/17/2025 10:48 AM EST Neck stiffness started 1 month ago hurts to move head from side to side , no injury associated no radiation of pain, no chest pain or pressure, no weakness, dizziness or sob ,no fever or chills, no headache . it is not getting worse but not going away .some days better then others but does not resolve . She has spinal stenosis and sees Dr. Ulloa for her back . She states she has had a similar pain in the past that had resolved Offered a few sooner apt.s pt. Unable to come in on those days due to other apts booked 07/23 and advised if she develops worsening symptoms to call the office if at anytime she develops cp,sob or weakness to be evaluated in the office . Pt. agrees * Purvi Hill - 07/17/2025 9:34 AM EST Patient returning phone call * Kavitha Pierson RN - 07/17/2025 9:15 AM EST Called listed number, no answer message stated correct number, left a message to call the office [phone] * Shruthi Bonilla - 07/17/2025 8:04 AM EST Patient call requires triage: Symptoms patient is presenting: Neck pain left side, stiffness radiates around the back of neck. How long has patient had these symptoms?: 1 month For ALL patients calling to schedule any appointment (routine, sick visit, follow up, consult, etc.) in the outpatient setting please ask the following questions: Do you have fever of higher than 101, sore throat with difficulty swallowing or severe shortness ofbreath? no If YES to any of these above symptoms, send a message to triage and do not book. Red dot. If no, an audio or video visit should be booked. Have you had close contact with someone with Coronavirus in the last 14 days? no Have you traveled abroad? no Have you traveled recently to another state outside of [place], [place], [place], [place], [place], [place], [place]? no o If yes, did you quarantine for 14 days or have a negative covid test? no If yes to any of the above, patient is not to be scheduled in office until after 14 day quarantine or negative covid test. If pain or injury related was it due to an accident at work or from a motor vehicle accident? If yes, date of accident/Injury: No If yes, gather 3rd republican insurance information Third Libertarian Information: not applicable PCP: Dragan Daniels MD Payor: [facility] [facility] / Plan: [facility] / Product Type: *No Product type* / documented in this encounter Plan of Treatment Upcoming Encounters Date Type Department Care Team (Late st Contact Info) Description 09/02/2025 8:40 AM EST Appointment Radiology Department [address] [phone] 11/18/2025 9:30 AM EDT Office Visit Adult Medicine [address] [phone] Dragan Daniels MD [address] [place], [place] documented as of this encounter Visit Diagnoses Not on filedocumented in this encounter Additional Health Concerns Infection Onset Date Last Indicated Resolved Time [facility] 03/08/2025 03/08/2025 Assessment Noted Time PHQ-9 Depression Total Score: 0 05/21/20 25 9:20 AM EDT A fall risk assessment has been complete d for the patient 08/19/2024 3:50 PM EST documented as of this encounter Care Teams Manager Critical Care Unit Relationship Specialty Start Date End Date Dragan Daniels MD [address] [place], [place] PCP - General 02/19/24 documented as of this encounter
--- OUTSIDE RECORDS SUMMARY | 2025-07-31 09:07 | XMS_ITS | Clinical Summary ---
Author Organization [facility] [address] [place] [address] [address] [place] [address] Phone Care Team Providers Care Marketing Team Lead Name Role Phone Dragan Daniels MD Primary Care Provider Allergies No known active allergies Medications multivitamin (MULTIPLE VITAMINS ORAL) Take 1 Tab by mouth daily. Active azelaic acid (FINACEA) 15 % gel 3 Active calcium carbonate-vitam in D 500 mg-5 mcg (200 unit) per [...] each day. 90 tablet 1 5 Active ibuprofen (ADVIL,MOTRIN) 600 mg tablet Take 1 tablet (600 mg total) by mouth every 6 (six) hours if needed. 5 Active lidocaine (LIDODERM) 5 % patch 5 Active nystatin (MYCOSTATIN) 100,000 unit/mL suspension 5 Active tretinoin (RETIN-A) 0.05 % cream 5 Active acetaminophen (TYLENOL 8 HOUR) 650 mg 8 hr tablet Take 1 tablet (650 mg total) by mouth every 8 (eight) hours if needed for mild pain or moderate pain. Do not crush, chew, or split. 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 I have not really pushed statins in [...] 08/03/2005 Hypothyroidism 08/03/2005 Overview (07/13/2024): Following with [facility] Resolved Problems Problem Noted Date Diagnosed Date Resolved Date Osteoporosis 05/10/2022 08/19/2024 Overview (07/13/2024): DEXA (07/04/2011); improvement to osteopenia since then Encounters Date Type Department Care Team Description 07/28/2025 Results Follow-Up Adult Medicine [address] [phone] Ashley Mena PA 07/23/2025 9:47 AM EST - 07/23/2025 11:59 PM EST Hospital Encounter [address] [phone] Chronic neck pain; Acute neck pain Discharge Disposition: Home or Self Care 07/23/2025 9:30 AM EST Office Visit Adult Medicine [address] [phone] Ashley Mena PA Acute neck pain (Primary Dx); Chronic neck pain; Spondylosis of cervical region without myelopathy or radiculopathy; Primary hypertension 07/17/2025 Telephone Adult Medicine [address] [phone] Dragan Daniels MD 05/29/2025 Telephone Adult Medicine [address] [phone] Dragan Daniels MD 05/21/2025 9:30 AM EDT Office Visit Adult Medicine [address] [phone] Dragan Daniels MD Nonischemic cardiomyopathy (CMS/HCC V24, CMS/HCC V28) (Primary Dx); Primary hypertension; Ingrown toenail; Hypothyroidism, unspecified type; Pure hypercholesterolemia; Menopause; Spinal stenosis of lumbar region, unspecified whether neurogenic claudication present 05/21/2025 Telephone Adult Medicine [address] [phone] Dragan Daniels MD from Last 3 Months Immunizations Immunization Administration Dates Next Due Influenza trivalent, 0.5mL [...] Surgery Date Site/Laterality Comments OTHER SURGICAL HISTORY 1971 PROCEDURE: HISTORICAL TOTAL HYSTERECTOMY W/O BSO; COMMENT: Age 26 COLONOSCOPY 01/2005 PROCEDURE: HISTORICAL COLONOSCOPY; COMMENT: Dr Galo COLONOSCOPY 08/31/19 PROCEDURE: HISTORICAL COLONOSCOPY; COMMENT: colonic bx: Minimal eosinophilia, nonspecific COLONOSCOPY 1999 PROCEDURE: HISTORICAL COLONOSCOPY; COMMENT: Dr. Galo; colon polyp removed. COLONOSCOPY 2012 PROCEDURE: HISTORICAL COLONOSCOPY; COMMENT: normal ESOPHAGOGASTRODUODENOSCOPY 2012 PROCEDURE: [place] ESOPHAGOGASTRODUODENOSCOPY TRANSORAL DIAGNOSTIC; COMMENT: normal HAND SURGERY 2011 PROCEDURE: HISTORICAL HAND SURGERY; COMMENT: Dr. Familia riley hand COLONOSCOPY 06/19/20 14 PROCEDURE: HISTORICAL COLONOSCOPY; COMMENT: Visually normal; random bx: normal (on budesonide rx) TONSILLECTOMY 1947 PROCEDURE: HISTORICAL TONSILLECTOMY MULTIPLE TOOTH EXTRACTIONS PROCEDURE: HISTORICAL DENTAL EXTRACTION UPPER GASTROINTESTINAL ENDOSCOPY 08/05/20 PROCEDURE: [place] UPPER GI ENDOSCOPY PERFORMED; COMMENT: Visually normal; duodenal bx: duodenal bx normal. UPPER GASTROINTESTINAL ENDOSCOPY 08/31/19 PROCEDURE: [place] UPPER GI ENDOSCOPY PERFORMED; COMMENT: duodenal bx: [...] 1 Q uit: 08/28/1979 Smokeless Tobacco: Never Tobacco [...] care for your loved ones. For example, child and family therapist or elderly care for an older adult? [...] 3 3 Date Outcome GA Total Labor Labor//3rd Weight Sex Type Anes PTL [place] A1 A5 Name Clin Term Term Term Last Filed Vital Signs Vital Sign Reading Time Taken Comments Blood Pressure 138/70 07/23/2025 9:20 AM EST Pulse 76 07/23/2025 9:20 AM EST Temperature 36.1 C (96.9 F) 07/23/2025 9:20 AM EST Respiratory Rate 12 07/23/2025 9:20 AM EST Oxygen Saturation 98% 07/23/2025 9:20 AM EST Inhaled Oxygen Concentration - - Weight 61 kg (134 lb 6.4 oz) 07/23/2025 9:20 AM EST Height 162.6 cm (5' 4 ) 07/23/2025 9:20 AM EST Body Mass Index 23.07 07/23/2025 9:20 AM EST Plan of Treatment Upcoming Encounters Date Type Department Care Team (Late st Contact Info) Description 09/02/2025 8:40 AM EST Appointment Radiology Department [address] [phone] 11/18/2025 9:30 AM EDT Office Visit Adult Medicine [address] [phone] Dragan Daniels MD [address] [place] [address] Health Maintenance Due Date Last Done Comments COVID-19 Vaccine ( season) 2025 06/11/2022, 11/30/2021, 06/21/2021, Additional history exists Hypertension/CHF/CAD Annual BMP Blood Test 03/05/2026 03/05/2025, 08/27/2024, 01/19/2024, Additional history exists Falls Risk Assessment 07/23/2026 07/23/2025 , 08/19/2024, 08/19/2024 Social Influencers of Health Screening 07/23/2026 07/23/2025 Cholesterol Screening (Lipid Panel) 08/27/2029 08/27/2024, 06/29/2023 DTaP,Tdap,and Td Vaccines (4 - Td or Tdap) 01/06/2034 01/07/2024, 12/04/2018, 02/16/2009 Osteoporosis Screening (Bone Density Screening) 09/03/2034 09/03/2024, 12/06/2021, 08/15/2019, Additional history exists Hepatitis C Screening Completed 02/27/2013 Pneumococcal Vaccine: 50+ Years Completed 04/22/2016, 02/24/2011 Zoster Vaccines Completed 07/17/2020, 06/29, 07/15/2019, Additional history exists RSV Immunization Adult Patients Completed 08/16/2023 Depression Screening Completed 05/21/2025 Influenza Vaccine Completed 07/10/2025, , 05/29/2023, Additional history exists HIB Vaccines Aged Out No longer eligi [...] Procedure Name Priority Date/Time Associated Diagnosis Comments XR CERVICAL SPINE 4-5 VIEWS Routine 07/23/2025 10:19 AM EST Chronic neck pain Acute neck pain COMPREHENSIVE METABOLIC PANEL STAT 03/05/2025 6:36 PM EDT BD BONE DENSITY DXA AXIAL SKELETON Routine 09/03/2024 1:45 PM EST Encounter for osteoporosis screening in asymptomatic postmenopausal patient LIPID PANEL WITH REFLEX TO DIRECT LDL Routine 08/27/2024 7:48 AM EST Pure hypercholesterolemia HM HEPATITIS C SCREENING Routine 02/27/2013 from Last 3 Months or Most Recently Relevant to Health Maintenance Results * XR Cervical Spine 4-5 Views (07/23/2025 10:19 AM EST) Anatomical Region Laterality Modality Spine, C-spine Radiographic Natali ging 07/23/2025 4:5 0 PM EST Impressions 07/23/2025 4:53 PM EST Moderate to advanced spondylosis and bilateral neuroforaminal narrowing, not significantly changed. -------- FINAL REPORT -------- Dictated By: Shira Heller Dictated Date: 07/23/2025 16:50 ET Assigned Physician: Shira Heller Reviewed and Electronically Signed By: Shira Heller Signed Date: 07/23/2025 16:53 ET Workstation ID: [id number] Transcribed By: Self Edit Transcribed Date: 07/23/2025 16:50 ET Narrative 07/23/2025 4:53 PM EST CERVICAL SPINE, 4 VIEWS HISTORY: Pain. DJD. Rule out progression. MRI 2018. \ Prior: Cervical spine 02/16/2017. FINDINGS: There is normal alignment of the cervical spine. No fracture or dislocation is seen. The paravertebral soft tissues are unremarkable. There is mild disc space narrowing with endplate spurring at C4-5. There is severe disc space narrowing and endplate spurring at C5-6, C6-7, and C7-T1. There is multilevel bilateral neural foraminal narrowing from osteophytes. There is multilevel facet arthropathy. Procedure Note Shira Heller MD - 07/23/2025 CERVICAL SPINE, 4 VIEWS HISTORY: Pain. DJD. Rule out progression. MRI 2018. \ Prior: Cervical spine 02/16/2017. FINDINGS: There is normal alignment of the cervical spine. No fracture ordislocation is seen. The paravertebral soft tissues are unremarkable. There is mild disc space narrowing with endplate spurring at C4-5. Thereis severe disc space narrowing and endplate spurring at C5-6, C6-7, andC7-T1. There is multilevel bilateral neural foraminal narrowing fromosteophytes. There is multilevel facet arthropathy. IMPRESSION: Moderate to advanced spondylosis and bilateral neuroforaminal narrowing,not significantly changed. -------- FINAL REPORT -------- Dictated By: Shira Heller Dictated Date: 07/23/2025 16:50 ET Assigned Physician: Shira Heller Reviewed and Electronically Signed By: Shira Heller Signed Date: 07/23/2025 16:53 ET Workstation ID: [id number] Transcribed By: Self Edit Transcribed Date: 07/23/2025 16:50 ET Ashley CARSON IMG XR PROCEDURES Final Result * (ABNORMAL) Comprehensive metabolic panel (03/05/2025 6:36 PM EDT) Sodium 137 133 - 145 mmol/L LAB CHEMISTRY METHOD 03/05/2025 7:34 PM EDT [facility] Potassium 4.5 3.5 - 5.5 mmol/L LAB CHEMISTRY METHOD 03/05/2025 7:34 PM EDT [facility] Chloride 103 96 - 110 mmol/L LAB CHEMISTRY METHOD 03/05/2025 7:34 PM EDT [facility] CO2 26 21 - 32 mmol/L LAB CHEMISTRY METHOD 03/05/2025 7:34 PM EDT [facility] Anion Gap 8 3 - 11 LAB CHEMISTRY METHOD 03/05/2025 7:34 PM [facility] Glucose 116(H) 70 - 100 mg/dL LAB CHEMISTRY METHOD 03/05/2025 7:34 PM [facility] BUN 20 5 - 25 mg/dL LAB CHEMISTRY METHOD 03/05/2025 7:34 PM [facility] Creatinine 0.95 0.50 - 1.10 mg/dL LAB CHEMISTRY METHOD 03/05/2025 7:34 PM [facility] eGFR 61 >=60 mL/min/1. 73m2 LAB CHEMISTRY METHOD 03/05/2025 7:34 PM [facility] Comment:Calculation based on the Chronic Kidney Disease Epidemiology Collaboration (CKD-EPI) equation refit without adjustment for race. BUN/Creatinine Ratio 21.1 LAB CHEMISTRY METHOD 03/05/2025 7:34 PM [facility] Calcium 9.9 8.5 - 10.5 mg/dL LAB CHEMISTRY METHOD 03/05/2025 7:34 PM [facility] AST (SGOT) 26 10 - 42 unit/L LAB CHEMISTRY METHOD 03/05/2025 7:34 PM [facility] ALT (SGPT) 22 10 - 60 unit/L LAB CHEMISTRY METHOD 03/05/2025 7:34 PM [facility] Alkaline Phosphatase 62 42 - 121 unit/L LAB CHEMISTRY METHOD 03/05/2025 7:34 PM [facility] Total Protein 6.9 6.0 - 8.0 g/dL LAB CHEMISTRY METHOD 03/05/2025 7:34 PM [facility] Albumin 3.9 3.2 - 5.0 g/dL LAB CHEMISTRY METHOD 03/05/2025 7:34 PM [facility] Total Bilirubin 0.7 0.0 - 1.4 mg/dL LAB CHEMISTRY METHOD 03/05/2025 7:34 PM [facility] Blood Venous blood specimen / Unknown Venipuncture / Unknown 03/05/2025 6:36 PM EDT 03/05/2025 6:56 PM EDT Js Mae MD LAB BLOOD ORDERABLES Final [facility]u lt [facility] [address] [place] [address], * BD Bone Density DXA Axial Skeleton [...] Signed Date: 09/03/2024 20:07 ET Workstation ID: [id number] Transcribed By: Self Edit Transcribed Date: 09/03/2024 20:05 ET Narrative 09/03/2024 8:07 PM EST STUDY: DUAL ENERGY X-RAY ABSORPTIOMETRY / DXA REASON FOR EXAM: Female, 78 years old osteopenia and screen for osteoporosis TECHNIQUE: Bone Mineral Density (BMD) measurements of the lumbar spine and left hip were obtained using [employer] Discovery W (S/N [id number]). COMPARISON: December 06, 2021 FINDINGS: L1-L2 BMD: [...] lumbar spineand left hip were obtained using [employer] Discovery W (S/N [id number]). COMPARISON: December 06, 2021 FINDINGS: L1-L2 BMD: [...] Signed Date: 09/03/2024 20:07 ET Workstation ID: [id number] Transcribed By: Self Edit Transcribed Date: 09/03/2024 20:05 ET Dragan Daniels MD IMG DXA PROCEDURES Fin al Result * (ABNORMAL) Lipid panel with reflex to direct LDL (08/27/2024 7:48 AM EST) Cholesterol 207(H) 0 - 200 mg/dL LAB CHEMISTRY METHOD 08/27/2024 10:37 AM [facility] Triglycerides 68 0 - 150 mg/dL LAB CHEMISTRY METHOD 08/27/2024 10:37 AM EST [facility] HDL 76 >=40 mg/dL LAB CHEMISTRY METHOD 08/27/2024 10:37 AM EST [facility] LDL Calculated 117(H) 0 - 100 mg/dL LAB CHEMISTRY METHOD 08/27/2024 10:37 AM EST [facility] VLDL Cholesterol Manoj 13.6 mg/dL LAB CHEMISTRY METHOD 08/27/2024 10:37 AM [facility] Non HDL Chol. (LDL+VLDL) 131 <145 mg/dL LAB CHEMISTRY METHOD 08/27/2024 10:37 AM [facility] Chol/HDL Ratio 2.7 0.0 - 4.4 LAB CHEMISTRY METHOD 08/27/2024 10:37 AM EST [facility] Blood Venous blood specimen / Unknown Venipuncture / Unknown 08/27/2024 7:48 AM EST 08/27/2024 7:48 AM EST Dragan Daniels MD LAB BLOOD ORDERABLES F inal Result [facility] [address] [place] [address], * Hepatitis C Screening (02/27/2013) Hepatitis C Screening abstracted Historical Provider HEALTH MAINTENANCE Final Result from Last 3 Months or Most Recently Relevant to Health Maintenance Additional Health Concerns Infection Onset Date Last Indicated [facility] 03/08/2025 03/08/2025 Insurance [employer] Care Teams Marketing Team Lead Relationship Specialty Start Date End Date Dragan Daniels MD [address] [place] [address] PCP - General 02/19/24
== END 2025-07-31 09:04 | disposition home or self-care (01) ==
LOC: HO.HPHYS 08:29
PROVIDERS: PCP Internal Medicine; Visit Provider Physical Medicine & Rehabilitation
DX: M48.062 Spinal stenosis, lumbar region with neurogenic claudication (principal); M54.16 Radiculopathy, lumbar region; M54.2 Cervicalgia
CPT/HCPCS: 99214